=== PATIENT | female | born 1955 | race Caucasian/White ===

== ENCOUNTER 2020-06-27 09:09 | Emergency (ER) | payer MEDICARE ==
[~2020-06-27] VITALS: Ht 162.6 cm; Wt 75.0 kg
[~2020-06-27 09:09] MED LIST: ATOR40TA PO; CA C1TAB28 PO; CALC600T6 PO; CIPR500T94 PO; FLUO40CA9 PO; GABA-585 PO; HYDR-2761 PO; LEVO50TA5 PO; METH-37 PO; Oxycodone Hcl/Acetaminophen PO; PROP20TA PO; tumeric PO
--- NOTE | 2020-06-27 09:35 | PHYS DOC ---
Past Medical History Past Medical History: Cancer, High Cholesterol, Other Additional Past Medical Histor: rectal cancer, mitral valve prolapse Past Surgical History: Hysterectomy Smoking Status: Former Smoker Alcohol Use: Rarely Drug Use: None General Adult EDM: Chief Complaint: BACK PAIN - NO INJURY HPI: HPI: History obtained from patient. Patient is a 65-year-old female with past medical history notable for rectal cancer, breast cancer who presents with chief complaint of left flank pain. States the pain began yesterday gradually abhi roximately 1 PM. States pain is been constant. States pain is been progressively worsening. She notes stool incontinence but states this is baseline for her after history of radiation. She notes history of colonoscopy 1 month ago that was normal. Denies any history of kidney stone. States that she has been difficulty starting urinary stream 4 days ago but is not had any urina ry symptoms since. Denies dysuria or hematuria. Denies fevers or cough. Denies chest pain or shortness of breath. Denies syncope. Denies any midline back pain. Denies any trauma or injury or overuse injury. Did try 1 g of Tylenol last night with minimal relief. Denies any alcohol or tobacco abuse. Street hysterectomy. Denies any blood in the stool. States pain is aching in nature. No other complaints. Review of Systems: Review of Systems: Constitutional: Denies fever or chills. [] Eyes: Denies change in visual acuity. [] HENT: Denies nasal congestion or sore throat. [] Respiratory: Denies cough or shortness of breath. [] Cardiovascular: Denies chest pain or edema. [] GI: Denies abdominal pain, nausea, vomiting, bloody stools or diarrhea. [] : Denies dysuria. [] Musculoskeletal: Positive for left flank pain Integument: Denies rash. [] Neurologic: Denies headache, focal weakness or sensory changes. [] Endocrine: Denies polyuria or polydipsia. [] Lymphatic: Denies swollen glands. [] Psychiatric: Denies depression or anxiety. [] Heart Score: Risk Factors: Risk Factors: DM, Current or recent (<one month) smoker, HTN, HLP, family history of CAD, obesity. Risk Scores: Score 0 - 3: 2.5% MACE over next 6 weeks - Discharge Home Score 4 - 6: 20.3% MACE over next 6 weeks - Admit for Clinical Observation Score 7 - 10: 72.7% MACE over next 6 weeks - Early Invasive Strategies Allergies: Allergies: Allergies Coded Allergies Type Severity Reaction Last Updated Verified codeine Allergy Intermediate Tolerates Morphine 09/04/16 Yes pseudoephedrine HCl Allergy Intermediate 09/04/16 Yes Physical Exam: PE: Constitutional: Well developed, well nourished, no acute distress, non-toxic appearance. [] HENT: Normocephalic, atraumatic, bilateral external ears normal, oropharynx moist, no oral exudates, nose normal. [] Eyes: PERRLA, EOMI, conjunctiva normal, no discharge. [] Neck: Normal range of motion, no tenderness, supple, no stridor. [] Cardiovascular:Heart rate regular rhythm, no murmur [] Lungs & Thorax: Bilateral breath sounds clear to auscultation [] Abdomen: Soft, nontender, nonacute abdomen. No involuntary guarding or rigidity noted. No acute peritonitis. Skin: Warm, dry, no erythema, no rash. [] Back: No reproducible left flank tenderness. + 5/5 motor strength in dorsiflexion and plantarflexion of the great toes bilaterally. Sensation intact between the webbing of the first and second toes bilaterally. No midline cervical, thoracic, lumbar step-offs or deformities noted. No midline tenderness. Extremities: No tenderness, no cyanosis, no clubbing, ROM intact, no edema. [] Neurologic: Alert and oriented X 3, normal motor function, normal sensory function, no focal deficits noted. [] Psychologic: Affect normal, judgement normal, mood normal. [] Current Patient Data: Labs: Laboratory Tests Test 06/27/20 09:20 06/27/20 09:45 Urine Collection Type Unknown Urine Color Yellow Urine Clarity Clear Urine pH 7.0 Urine Specific Laurens 1.025 Urine Protein Negative mg/dL Urine Glucose (UA) Negative mg/dL Urine Ketones (Stick) Negative mg/dL Urine Blood Negative Urine Nitrite Negative Urine Bilirubin Negative Urine Urobilinogen Dipstick 0.2 mg/dL Urine Leukocyte Esterase Negative Urine RBC 1-2 /HPF Urine WBC Occ /HPF Urine Squamous Epithelial Cells Few /LPF Urine Bacteria 0 /HPF Urine Mucus Slight /LPF White Blood Count 12.8 x10^3/uL Red Blood Count 4.81 x10^6/uL Hemoglobin 14.2 g/dL Hematocrit 42.2 % Mean Corpuscular Volume 88 fL Mean Corpuscular Hemoglobin 30 pg Mean Corpuscular Hemoglobin Concent 34 g/dL Red Cell Distribution Width 13.3 % Platelet Count 239 x10^3/uL Neutrophils (%) (Auto) 86 % Lymphocytes (%) (Auto) 9 % Monocytes (%) (Auto) 4 % Eosinophils (%) (Auto) 0 % Basophils (%) (Auto) 1 % Neutrophils # (Auto) 11.0 x10^3/uL Lymphocytes # (Auto) 1.2 x10^3/uL Monocytes # (Auto) 0.5 x10^3/uL Eosinophils # (Auto) 0.0 x10^3/uL Basophils # (Auto) 0.1 x10^3/uL Platelet Estimate Pending Sodium Level 134 mmol/L Potassium Level 3.9 mmol/L Chloride Level 100 mmol/L Carbon Dioxide Level 25 mmol/L Anion Gap 9 Blood Urea Nitrogen 12 mg/dL Creatinine 0.6 mg/dL Estimated GFR (Cockcroft-Gault) 100.0 BUN/Creatinine Ratio 20 Glucose Level 131 mg/dL Calcium Level 8.0 mg/dL Total Bilirubin 0.6 mg/dL Aspartate Amino Transf (AST/SGOT) 31 U/L Alanine Aminotransferase (ALT/SGPT) 40 U/L Alkaline Phosphatase 58 U/L Troponin I Quantitative < 0.017 ng/mL Total Protein 7.2 g/dL Albumin 3.5 g/dL Albumin/Globulin Ratio 0.9 Lipase 147 U/L Current Medications Medications (Trade) Dose Ordered Sig/Tangela Route PRN Reason Start Time Stop Time Status Last Admin Dose Admin Ketorolac Tromethamine (Toradol 15mg Vial) 15 mg 1X ONCE IVP 06/27/20 09:45 06/27/20 09:46 DC 06/27/20 09:46 Vital Signs: Vital Signs Date Time Temp Pulse Resp B/P (MAP) Pulse Ox O2 Delivery O2 Flow Rate FiO2 06/27/20 09:22 97.0 81 16 146/78 (100) 98 Room Air 97.0 EKG: EKG: [] Radiology/Procedures: Radiology/Procedures: [facility] [address] [place], [place] [id number] IMAGING REPORT Signed PATIENT: APOLLO BOCANEGRA ACCOUNT: [id number] : 1955 LOCATION: ER AGE: 65 SEX: F EXAM STATUS: REG ER ORD. PHYSICIAN: ARTHUR MESA DO REASON: L flank pain PROCEDURE: CT ABDOMEN PELVIS WO CONTRAST EXAMINATION: CT ABDOMEN PELVIS WO CONTRAST (CT ABDOMEN/PELVIS WITHOUT IV CONTRAST) CLINICAL HISTORY: Left flank pain TECHNIQUE: Non-IV contrast imaging of the abdomen and pelvis was performed using standard technique, scanning from just above the dome of the diaphragm to the symphysis pubis. Unenhanced imaging is limited for the evaluation of some intra-abdominal and pelvic pathology. CT Dose Reduction Employed: One or more of the following individualized dose reduction techniques were utilized for this examination: 1. Automated exposure control 2. Adjustment of the mA and/or kV according to patient size 3. Use of iterative reconstruction technique. COMPARISON: 04/15/2014, 03/26/2014 FINDINGS: Lower thorax: Mild bibasilar subsegmental atelectasis and/or scarring. Liver: Unremarkable. Biliary: Mildly distended gallbladder. No extrahepatic biliary ductal dilation. Spleen: No splenomegaly. Pancreas: Unremarkable. Adrenals: No mass. Kidneys: 1.5 cm cyst in the left upper pole. No significant hydronephrosis. No calculus or finding to suggest a solid mass in the unenhanced kidneys. GI Tract: No bowel dilation. Question appendiceal stump versus partially visualized appendix. Lymph Nodes: No lymphadenopathy. Mesentery/peritoneum: No ascites. Retroperitoneum: No mass. Vasculature: Arterial atherosclerotic disease without aneurysm. Pelvis: Mild free fluid in the pelvis, likely physiologic in similar to prior study. Decompressed urinary bladder suboptimally evaluated. Bones/Soft Tissues: Sclerosis and patchy lucencies in the right inferior acetabulum/ischium with cortical disruption posteriorly, new since most recent comparison study from 2013. These findings are nonspecific and could be remote trauma, infection, or pathologic marrow replacing process. Remote healed fracture deformities in the left superior and inferior pubic rami, similar to prior study. Degenerative changes in the thoracolumbar spine and bilateral SI joints. IMPRESSION: No evidence of urolithiasis or obstructive uropathy. 1.5 cm left renal cyst, similar to prior studies. Mildly distended gallbladder without visualized cholelithiasis, correlate clinically and consider right upper quadrant ultrasound for further evaluation if indicated. Nonspecific sclerosis and patchy lucencies with cortical disruption in the right inferior acetabulum/ischium as described. Correlate clinically and recommend MRI for further evaluation as indicated. Electronically signed by: Amado Katz DO (06/27/2020 10:41 AM) [id number] DICTATED and SIGNED BY: AMADO KATZ DO DATE: 06/27/20 104 [] Course & Med Decision Making: Course & Med Decision Making Pertinent Labs and Imaging studies reviewed. (See chart for details) [] Patient is an overall well-appearing 65-year-old female presents with chief complaint of left flank pain. Initial vital signs unremarkable. Exam overall reassuring. No red flag signs or symptoms regarding back pain. Urinalysis shows no evidence of infection. Basic labs have been obtained and are unremarkable. CT imagin reveals no acute findings. Repeat examination patient states Toradol resolved her symptoms. Her repeat examination remains benign. Her vital signs been stable. I do feel overall she is appropriate for discharge home. She was given strict ~24-hour return precautions. She was encouraged to use anti-inflammatory medication at home. Return precautions discussed and understood. Stable for discharge. Dragon Disclaimer: [employer] Disclaimer: This electronic medical record was generated, in whole or in part, using a voice recognition dictation system. Departure Departure Impression: Primary Impression: Left flank pain Disposition: 01 DC HOME SELF CARE/HOMELESS Condition: STABLE Referrals: UNKNOWN PCP NAME (PCP) Patient Instructions: Flank Pain Additional Instructions: Please follow-up with your primary care physician in the next 2 to 3 days. Please return emergency department the next 12 hours or symptoms continue or worsen. Discharge Abdominal Pain Re-Check Precautions: I'm unsure of the specific cause of your abdominal pain. However, at this point I feel that you are low risk for a life threatening emergency and that discharge from the Emergency Department is safe. There is a very small possibility that you are just too early in your clinical course for our physical exam/labs/imaging to ascertain whether or not you have an emergent condition that could potentially cause permanent disability or be life threatening. As such, it is very important that you follow up with your primary doctor or return to the Emergency Department in 12-24 hours for re-assessment and further evaluation if clinically indicated. If you develop new or worsening symptoms then you should return to the Emergency Department immediately. Home Care Instructions: Abdominal Pain Many things may cause abdominal pain. Your ER visit might not show the exact reason you are having pain. In some cases, additional time is needed to determine if the cause is serious. Therefore you may be told to go home and watch for any changes or worsening in your condition. Before that, we may not know if you need more testing, or if hospitalization or surgery is necessary. If its not something serious, the pain may go away without treatment or get better with simple things like avoiding certain foods or medications. In the ER, your doctor asks you questions, examines you and in some cases, may order tests. These help doctors decide if the pain is from something serious. Tests are not always done and may not provide a definite answer. There can still be a problem, even with normal test results. Abdominal pain may be caused by something serious (like appendicitis), which is not obvious right away. Because of this, another checkup is needed to make sure you are OK. It is VERY IMPORTANT to follow up for a repeat exam, especially if you have any symptoms that are not going away or are getting worse. We recommend that you RETURN TO THE EMERGENCY ROOM IN 8-12 HOURS to be rechecked. If you cannot, you may follow up with your primary care doctor or clinic. It is important that you follow all of the instructions below. RETURN TO THE EMERGENCY ROOM IMMEDIATELY IF: The pain does not go away or gets worse. You have a fever. You keep throwing up and cannot keep anything down. You pass bloody or black stools. You develop new symptoms. HOME CARE INSTRUCTIONS Come back to the ER (or see your doctor) in 8-12 hours. DO NOT take laxatives unless directed by your doctor. Avoid the use of alcohol Take pain medicine only as directed by your doctor. Only take [id number] or prescription medicine as directed by your doctor. Try a clear liquid diet (broth, tea, jello, water) for the next 12-24 hours. Slowly move to a bland diet as tolerated. Do not eat greasy, fatty or spicy foods. Once you start getting better, go back to a normal, healthy diet, slowly over a few days. DISCHARGE PT INSTRUCTIONS: YOU HAVE BEEN EVALUATED FOR ABDOMINAL PAIN. HOWEVER, WE ARE UNABLE TO PROVIDE A DEFINITE CAUSE OF YOUR SYMPTOMS. EVEN THOUGH YOUR TESTS MAY HAVE BEEN NORMAL, YOU STILL COULD HAVE A SERIOUS CAUSE FOR YOUR ABDOMINAL PAIN, INCLUDING APPENDICITIS. THE BEST TEST TO DETERMINE IF YOU HAVE A SERIOUS CAUSE IS RE-EXAMINATION OVER TIME. WE USED TO ADMIT PATIENTS TO THE HOSPITAL FOR THIS, BUT CAN NOW ALLOW YOU TO GO HOME, & RETURN TO OUR ER THE NEXT DAY FOR RE- EXAMINATION. THUS, WE WOULD LIKE YOU TO RETURN TO OUR ER TOMORROW FOR YOUR RE- EVALUATION. (IF YOUR SYMPTOMS HAVE GONE AWAY, THEN YOU DO NOT NEED TO RETURN.) IF YOUR SYMPTOMS GET WORSE BETWEEN NOW & THEN, YOU SHOULD RETURN IMMEDIATELY & NOT WAIT UNTIL TOMORROW. SYMPTOMS TO LOOK FOR WORSENING PAIN, HIGH FEVER, PERSISTENT VOMITING , AND/OR OVERALL WORSENING OF YOUR CONDITION. [facility] [address] [place] [address] [facility] [address] [place] [address] [facility] [address] [facility] [place] [address] [facility] [address] [place] [address] [facility] [address] [place] [address] [facility] [address] [place] [address] [facility] [address] [place] [address] [facility] [address] [place] [address] [facility] [address] [place] [address] [facility] [address] [place] [address] Scripts Ibuprofen (IBUPROFEN) 600 Mg Tablet 600 MG PO PRN Q6HRS PRN for PAIN, #20 TAB take with food or milk Prov: ARTHUR MESA DO 06/27/20 ARTHUR MESA DO Jun 27, 2020 09:35
[2020-06-27] MEDS ORDERED: KETOROLAC 15 MG/ML VIAL. IVP ONE (09:45)
[2020-06-27 09:54] LABS: BILIRUBIN,URINE NEGATIVE (NEG); CLARITY,URINE CLEAR; COLOR,URINE YELLOW; NITRITE,URINE NEGATIVE (NEG); PROTEIN,URINE NEGATIVE (NEG-TRACE); UROBILINOGEN,URINE 0.2 mg/dL (0.2 mg/dL)
[2020-06-27 10:04] LABS: CREATININE 0.6 mg/dL (0.6-1.0); POTASSIUM 3.9 mmol/L (3.5-5.1)
[2020-06-27 10:05] LABS: BASO # 0.1 x10^3/uL (0.0-0.2); BASO % 1 % (0-3); EOS % 0 % (0-3); HEMATOCRIT 42.2 % (36.0-47.0); HEMOGLOBIN 14.2 g/dL (12.0-15.5); LYMPH # 1.2 x10^3/uL (1.0-4.8); LYMPH % 9 % (24-48); MEAN CORPUSCULAR HEMOGLOBIN 30 pg (25-35); MEAN CORPUSCULAR HGB CONC 34 g/dL (31-37); MEAN CORPUSCULAR VOLUME 88 fL (79-100); MONO # 0.5 x10^3/uL (0.0-1.1); MONO % 4 % (0-9); NEUT % 86 % (31-73); PLATELET COUNT 239 x10^3/uL (140-400); RED BLOOD COUNT 4.81 x10^6/uL (3.50-5.40); RED CELL DISTRIBUTION WIDTH 13.3 % (11.5-14.5); WHITE BLOOD COUNT 12.8 x10^3/uL (4.0-11.0)
[2020-06-27 10:09] LABS: ALBUMIN 3.5 g/dL (3.4-5.0); ALBUMIN/GLOBULIN RATIO 0.9 (1.0-1.7); TOTAL BILIRUBIN 0.6 mg/dL (0.2-1.0); TOTAL PROTEIN 7.2 g/dL (6.4-8.2)
[2020-06-27 10:19] LABS: BACTERIA,URINE 0 /HPF (0-FEW); WBC,URINE OCC /HPF (0-4)
--- NOTE | 2020-06-27 10:28 | RAD ---
EXAM: CHEST AP ONLY 06/27/2020 9:58 AM CLINICAL INDICATION: Right upper back pain COMPARISON: None TECHNIQUE: AP upright view the chest FINDINGS: The heart and mediastinum are normal. Lungs are well-expanded and clear. No consolidation, pleural effusion, or pneumothorax. Pulmonary vascularity is normal. There are old right posterior lateral rib fractures. Mild right acromioclavicular degenerative joint disease. IMPRESSION: No acute cardiopulmonary abnormality. Electronically signed by: Stephanie Muller MD (06/27/2020 10:25 AM) [id number]
--- NOTE | 2020-06-27 10:44 | RAD ---
EXAMINATION: CT ABDOMEN PELVIS WO CONTRAST (CT ABDOMEN/PELVIS WITHOUT IV CONTRAST) CLINICAL HISTORY: Left flank pain TECHNIQUE: Non-IV contrast imaging of the abdomen and pelvis was performed using standard technique, scanning from just above the dome of the diaphragm to the symphysis pubis. Unenhanced imaging is limited for the evaluation of some intra-abdominal and pelvic pathology. CT Dose Reduction Employed: One or more of the following individualized dose reduction techniques were utilized for this examination: 1. Automated exposure control 2. Adjustment of the mA and/or kV according to patient size 3. Use of iterative reconstruction technique. COMPARISON: 04/15/2014, 03/26/2014 FINDINGS: Lower thorax: Mild bibasilar subsegmental atelectasis and/or scarring. Liver: Unremarkable. Biliary: Mildly distended gallbladder. No extrahepatic biliary ductal dilation. Spleen: No splenomegaly. Pancreas: Unremarkable. Adrenals: No mass. Kidneys: 1.5 cm cyst in the left upper pole. No significant hydronephrosis. No calculus or finding to suggest a solid mass in the unenhanced kidneys. GI Tract: No bowel dilation. Question appendiceal stump versus partially visualized appendix. Lymph Nodes: No lymphadenopathy. Mesentery/peritoneum: No ascites. Retroperitoneum: No mass. Vasculature: Arterial atherosclerotic disease without aneurysm. Pelvis: Mild free fluid in the pelvis, likely physiologic in similar to prior study. Decompressed urinary bladder suboptimally evaluated. Bones/Soft Tissues: Sclerosis and patchy lucencies in the right inferior acetabulum/ischium with cortical disruption posteriorly, new since most recent comparison study from 2013. These findings are nonspecific and could be remote trauma, infection, or pathologic marrow replacing process. Remote healed fracture deformities in the left superior and inferior pubic rami, similar to prior study. Degenerative changes in the thoracolumbar spine and bilateral SI joints. IMPRESSION: No evidence of urolithiasis or obstructive uropathy. 1.5 cm left renal cyst, similar to prior studies. Mildly distended gallbladder without visualized cholelithiasis, correlate clinically and consider right upper quadrant ultrasound for further evaluation if indicated. Nonspecific sclerosis and patchy lucencies with cortical disruption in the right inferior acetabulum/ischium as described. Correlate clinically and recommend MRI for further evaluation as indicated. Electronically signed by: Amado Short DO (06/27/2020 10:41 AM) [id number]
[2020-06-27] MEDS ORDERED: IBUP-1007 PO (10:56)
[2020-06-27 11:11] VITALS: BP 113/63
[2020-06-27 12:44] LABS: % ATYL 2 % (0-0); % BANDS 4 % (0-9); % LYMPHS 8 % (24-48); % MONOS 7 % (0-10); % SEGS 79 % (35-66)
[2020-06-27 12:45] LABS: PLT ESTIMATE ADEQUATE (ADEQUATE)
== END 2020-06-27 11:32 | disposition home or self-care (01) ==
LOC: ER 09:09
DX: R10.32 Left lower quadrant pain (principal); M54.6 Pain in thoracic spine; R39.11 Hesitancy of micturition; Z88.5 Allergy status to narcotic agent; Z88.8 Allergy status to other drugs, medicaments and biological substances
CPT/HCPCS: 36415; 71045; 74176; 80053; 81001; 83690; 84484; 85007; 85025; 96374; 99285; J1885; 43753

== ENCOUNTER 2020-06-28 06:44 | Observation (INO) | payer MEDICARE ==
[~2020-06-28] VITALS: Ht 162.6 cm; Wt 73.6 kg
[~2020-06-28 06:44] MED LIST changes: +IBUP-1007 PO
[2020-06-28] MEDS ORDERED: KETOROLAC 30 MG/ML VIAL. IVP ONE (08:15)
--- NOTE | 2020-06-28 08:18 | RAD ---
EXAMINATION: ABDOMEN LTD 06/28/2020 7:42 AM INDICATION: Right upper quadrant pain TECHNIQUE: Brown scale and color Doppler ultrasound images of the right upper quadrant were obtained. COMPARISON: None. FINDINGS: Exam is limited due to bowel gas. Liver: The liver is normal in size measuring 15.5 cm in length and diffusely increased in echogenicity. No focal liver lesion. Gallbladder: The gallbladder is distended. There are echogenic shadowing calculi layering in the gallbladder lumen. The gallbladder wall is mildly thickened measuring 4 mm. Sonographic Gallardo sign is positive. Bile ducts: The common bile duct is normal measuring 6 mm. No intrahepatic biliary duct dilatation. Right kidney: The right kidney measures 11.0 x 5.8 x 4.4 cm. Normal cortical thickness and echogenicity. No hydronephrosis. Other: Abdominal aorta, inferior vena cava, and pancreas are not well visualized. No ascites. IMPRESSION: 1. Cholelithiasis with mild gallbladder wall thickening and positive sonographic Gallardo sign, suspicious for acute cholecystitis. Correlate clinically. 2. Hepatic steatosis. Electronically signed by: Stephanie Muller MD (06/28/2020 8:15 AM) [email or web address]
[2020-06-28 08:37] LABS: BASO # 0.1 x10^3/uL (0.0-0.2); BASO % 1 % (0-3); EOS % 1 % (0-3); HEMATOCRIT 44.1 % (36.0-47.0); HEMOGLOBIN 14.5 g/dL (12.0-15.5); LYMPH # 0.9 x10^3/uL (1.0-4.8); LYMPH % 9 % (24-48); MEAN CORPUSCULAR HEMOGLOBIN 29 pg (25-35); MEAN CORPUSCULAR HGB CONC 33 g/dL (31-37); MEAN CORPUSCULAR VOLUME 89 fL (79-100); MONO # 0.6 x10^3/uL (0.0-1.1); MONO % 6 % (0-9); NEUT # 8.4 x10^3/uL (1.8-7.7); NEUT % 83 % (31-73); PLATELET COUNT 249 x10^3/uL (140-400); RED BLOOD COUNT 4.94 x10^6/uL (3.50-5.40); RED CELL DISTRIBUTION WIDTH 13.5 % (11.5-14.5); WHITE BLOOD COUNT 10.1 x10^3/uL (4.0-11.0)
[2020-06-28 08:45] LABS: CALCIUM 8.9 mg/dL (8.5-10.1); CREATININE 0.7 mg/dL (0.6-1.0); GFR 83.7; POTASSIUM 3.9 mmol/L (3.5-5.1)
[2020-06-28 08:51] LABS: ALBUMIN 3.5 g/dL (3.4-5.0); ALBUMIN/GLOBULIN RATIO 0.8 (1.0-1.7); TOTAL BILIRUBIN 1.1 mg/dL (0.2-1.0); TOTAL PROTEIN 7.7 g/dL (6.4-8.2)
--- NOTE | 2020-06-28 10:15 | ED.ADGEN ---
Past Medical History Past Medical History: Cancer, High Cholesterol, Other Additional Past Medical Histor: rectal cancer, mitral valve prolapse, BREAST CANCER Past Surgical History: Hysterectomy, Other Additional Past Surgical Histo: left lumpectomy Smoking Status: Former Smoker Alcohol Use: None Drug Use: None General Adult EDM: Chief Complaint: MULTIPLE COMPLAINTS HPI: HPI: Patient is a 65-year-old female who presents to the emergency room complaining of left flank and right upper quadrant abdominal pain. Patient was seen here yesterday for left flank pain that radiated into her back. She had a CT scan done at that time that appeared overall normal. She was told that if her symptoms did not greatly improve that she should return to the emergency room. She continues to have significant pain so she came back to the ER. This morning she developed the right upper quadrant pain which is new. She states that is her dominant pain at this time. She has never had anything like this before. She does still have her gallbladder. She did have gallstones on her CT scan yesterday but she had normal liver enzymes without any pain. She denies any nausea or vomiting. Review of Systems: Review of Systems: General: Denies fever, chills, sweats, fatigue Eyes: Denies drainage, blurred vision, eye redness HENT: Denies rhinorrhea, sore throat, earache Respiratory: Denies cough, shortness of breath, wheezing Cardiac: Denies edema, palpitations, chest pain GI: Denies, Nausea, vomiting. Reports abdominal pain MSK: Denies back pain, neck pain Skin: Denies rash, jaundice Neuro: Denies headache, dizziness Psychiatric: Denies SI/HI Current Medications: Current Medications Medications (Trade) Dose Ordered Sig/Tangela Start Time Stop Time Status Last Admin Dose Admin Ketorolac Tromethamine (Toradol 30mg Vial) 30 mg 1X ONCE 06/28/20 08:15 06/28/20 08:18 DC 06/28/20 08:25 30 MG Allergies: Allergies: Allergies Coded Allergies Type Severity Reaction Last Updated Verified codeine Allergy Intermediate Tolerates Morphine 09/04/16 Yes pseudoephedrine HCl Allergy Intermediate 09/04/16 Yes Physical Exam: PE: General: Awake, alert, NAD. Well Nourished, well hydrated. Cooperative HEENT: Atraumatic, EOMI, PERRL, airway patent, moist oral mucosa Neck: Supple, trachea midline Respiratory: CTA bilaterally, normal effort, no wheezing/crackles CV: RRR, no murmur, cap refill <2 GI: Soft, nondistended, right upper quadrant abdominal tenderness MSK: No obvious deformities Skin: Warm, dry, intact Neuro: A&O x3, speech NL, sensory and motor grossly intact, no focal deficits Psych: Normal affect, normal mood, not suicidal or homicidal Current Patient Data: Labs: Laboratory Tests Test 06/28/20 08:06 White Blood Count 10.1 x10^3/uL (4.0-11.0) Red Blood Count 4.94 x10^6/uL (3.50-5.40) Hemoglobin 14.5 g/dL (12.0-15.5) Hematocrit 44.1 % (36.0-47.0) Mean Corpuscular Volume 89 fL (79-100) Mean Corpuscular Hemoglobin 29 pg (25-35) Mean Corpuscular Hemoglobin Concent 33 g/dL (31-37) Red Cell Distribution Width 13.5 % (11.5-14.5) Platelet Count 249 x10^3/uL (140-400) Neutrophils (%) (Auto) 83 % (31-73) H Lymphocytes (%) (Auto) 9 % (24-48) L Monocytes (%) (Auto) 6 % (0-9) Eosinophils (%) (Auto) 1 % (0-3) Basophils (%) (Auto) 1 % (0-3) Neutrophils # (Auto) 8.4 x10^3/uL (1.8-7.7) H Lymphocytes # (Auto) 0.9 x10^3/uL (1.0-4.8) L Monocytes # (Auto) 0.6 x10^3/uL (0.0-1.1) Eosinophils # (Auto) 0.0 x10^3/uL (0.0-0.7) Basophils # (Auto) 0.1 x10^3/uL (0.0-0.2) Sodium Level 135 mmol/L (136-145) L Potassium Level 3.9 mmol/L (3.5-5.1) Chloride Level 100 mmol/L (98-107) Carbon Dioxide Level 26 mmol/L (21-32) Anion Gap 9 (6-14) Blood Urea Nitrogen 14 mg/dL (7-20) Creatinine 0.7 mg/dL (0.6-1.0) Estimated GFR (Cockcroft-Gault) 83.7 BUN/Creatinine Ratio 20 (6-20) Glucose Level 113 mg/dL (70-99) H Calcium Level 8.9 mg/dL (8.5-10.1) Total Bilirubin 1.1 mg/dL (0.2-1.0) H Aspartate Amino Transferase (AST) 52 U/L (15-37) H Alanine Aminotransferase (ALT) 67 U/L (14-59) H Alkaline Phosphatase 71 U/L (46-116) Total Protein 7.7 g/dL (6.4-8.2) Albumin 3.5 g/dL (3.4-5.0) Albumin/Globulin Ratio 0.8 (1.0-1.7) L Lipase 64 U/L (73-393) L Laboratory Tests 06/28/20 08:06 Laboratory Tests 06/28/20 08:06 Vital Signs: Vital Signs Date Time Temp Pulse Resp B/P (MAP) Pulse Ox O2 Delivery O2 Flow Rate FiO2 06/28/20 09:39 80 16 129/65 (86) 95 Room Air 06/28/20 06:51 98.3 98.3 EKG: EKG: [] Heart Score: Risk Factors: Risk Factors: DM, Current or recent (<one month) smoker, HTN, HLP, family history of CAD, obesity. Risk Scores: Score 0 - 3: 2.5% MACE over next 6 weeks - Discharge Home Score 4 - 6: 20.3% MACE over next 6 weeks - Admit for Clinical Observation Score 7 - 10: 72.7% MACE over next 6 weeks - Early Invasive Strategies Radiology/Procedures: Radiology/Procedures: [] Course & Med Decision Making: Course & Med Decision Making Pertinent Labs and Imaging studies reviewed. (See chart for details) Patient is 65-year-old female who presents to the emergency room complaining of right upper quadrant abdominal pain with left flank pain. CT did show thickened gallbladder wall yesterday. We will repeat abdominal labs and do an ultrasound of her gallbladder. LFTs are increasing and ultrasound is concerning for acute cholecystitis. Patient will be admitted and Dr. Lott the surgeon was consulted. Caroleeon Disclaimer: Dragon Disclaimer: This electronic medical record was generated, in whole or in part, using a voice recognition dictation system. Departure Departure Impression: Primary Impression: Acute cholecystitis Disposition: 09 ADMITTED INPT THIS HOSP Condition: IMPROVED Referrals: UNKNOWN PCP NAME (PCP) CÉSAR VEE MD Jun 28, 2020 10:15
[2020-06-28] MEDS ORDERED: HYDROmorphone 2 MG/ML VIAL IV PRN (11:00)
[2020-06-28] MEDS ORDERED: PROCHLORPERAZINE 10 MG/2 ML VIAL. IVP PRN (11:00)
[2020-06-28] MEDS ORDERED: ONDANSETRON PF 4 MG/2 ML VIAL. IVP PRN (11:00)
[2020-06-28] MEDS ORDERED: ZOLPIDEM 5 MG TABLET. PO PRN (11:00)
[2020-06-28] MEDS ORDERED: MORPHINE SULFATE 2 MG/ML VIAL. IV PRN ×2 (11:00)
[2020-06-28] MEDS ORDERED: KETOROLAC 15 MG/ML VIAL. IV PRN (11:00)
--- NOTE | 2020-06-28 11:20 | PDOC1 ---
History and Physical Date of Admission Date of Admission DATE: 06/28/20 TIME: 10:59 Identification/Chief Complaint Chief Complaint Abdominal pain, back pain Source Source: Patient History of Present Illness History of Present Illness Patient is a 65-year-old female with past medical history rectal cancer, who presents to the ER with complaint of epigastric pain that started today. She was seen in the ER yesterday for left lower back pain that she thought was related to urinary tract infection. Urinalysis from yesterday was negative for any evidence of infection, and CT abdomen pelvis showed 1.5 cm left renal cyst, similar to prior studies, mildly distended gallbladder without visualized cholelithiasis. Patient was discharged from the ER and told to return if her symptoms worsened. This morning she began develop aching epigastric pain, 8/10, with associated decreased appetite. Patient notes an associated decreased appetite, and says she has not eaten today. Ultrasound right upper quadrant shows mild gallbladder wall thickening with cholelithiasis. General surgery was contacted by ER physician for acute cholecystitis, and I was asked to admit for further medical management. WBC 10.1, lipase 64 Past Medical History Past Medical History Rectal cancer, left breast cancer, mitral valve prolapse, HLD Cardiovascular: Other Pulmonary: No pertinent hx GI: Other Heme/Onc: Other Hepatobiliary: Other Psych: Depression Rheumatologic: No pertinent hx Infectious disease: No pertinent hx Endocrine: Osteoporosis, Other Past Surgical History Past Surgical History: Breast Biopsy, Hysterectomy Family History Family History: No Significant Social History Smoke: Quit ALCOHOL: none Drugs: None Current Problem List Problem List Problems Medical Problems: (1) Acute cholecystitis Status: Acute Current Medications Current Medications Current Medications Ketorolac Tromethamine (Toradol 30mg Vial) 30 mg 1X ONCE IVP Last administered on 06/28/20at 08:25; Start 06/28/20 at 08:15; Stop 06/28/20 at 08:18; Status DC Active Scripts Active Ibuprofen 600 Mg Tablet 600 Mg PO PRN Q6HRS PRN take with food or milk Hydrocodone-Apap 5-325 (Hydrocodone Bit/Acetaminophen) 1 Each Tablet 2 Tab PO PRN Q4HRS PRN Reported Propranolol Hcl 20 Mg Tablet 1 Tab PO PRN BID PRN [tumeric] 1,000 Mg PO DAILY Levothyroxine Sodium 50 Mcg Tablet 1 Tab PO DAILY Calcium (Calcium Carbonate) 600 Mg Tablet 1,200 Mg PO DAILY Vitamin D3 1,000 Unit Tablet (Ca Cmb No.1/Vit D3/B-6/Fa/B12) 1 Each Tablet 1 Each PO DAILY Lipitor (Atorvastatin Calcium) 40 Mg Tablet 40 Mg PO HS Allergies Allergies: Coded Allergies: codeine (Verified Allergy, Intermediate, Tolerates Morphine, 09/04/16) pseudoephedrine HCl (Verified Allergy, Intermediate, 09/04/16) ROS Review of System GENERAL: No history of weight change, weakness or fevers. SKIN: No bruising, hair changes or rashes. EYES: No blurred, double or loss of vision. NOSE AND THROAT: No history of nosebleeds, hoarseness or sore throat. HEART: Denies chest pain, denies palpitations. LUNGS: Denies cough, hemoptysis, wheezing or shortness of breath. GASTROINTESTINAL: Abdominal pain, decreased appetite. Denies vomiting, denies diarrhea. GENITOURINARY: Denies dysuria, frequency, urgency, hematuria. NEUROLOGIC: Denies history of numbness, tingling, tremor or weakness. PSYCHIATRIC: Denies anxiety, denies depression. ENDOCRINE: No history of heat or cold intolerance, polyuria or polydipsia. EXTREMITIES: Denies muscle weakness, joint pain, pain on walking or stiffness. Physical Exam Physical Exam General: Alert, Oriented X3, Cooperative, No acute distress HEENT: PERRLA, EOMI Lungs: Clear to auscultation, Normal air movement Heart: RRR, no murmurs Cardiovascular: S1, S2 Abdomen: Right upper quadrant tenderness normal bowel sounds, Soft. Extremities: No clubbing, No cyanosis Skin: No rashes, No significant lesion Neuro: Normal speech, Normal tone, Sensation intact Psych/Mental Status: Mental status NL, Mood NL Vitals Vitals Vital Signs Date Time Temp Pulse Resp B/P (MAP) Pulse Ox O2 Delivery O2 Flow Rate FiO2 06/28/20 09:39 80 16 129/65 (86) 95 Room Air 06/28/20 06:51 98.3 98.3 Labs Labs Laboratory Tests Test 06/28/20 08:06 White Blood Count 10.1 x10^3/uL (4.0-11.0) Red Blood Count 4.94 x10^6/uL (3.50-5.40) Hemoglobin 14.5 g/dL (12.0-15.5) Hematocrit 44.1 % (36.0-47.0) Mean Corpuscular Volume 89 fL (79-100) Mean Corpuscular Hemoglobin 29 pg (25-35) Mean Corpuscular Hemoglobin Concent 33 g/dL (31-37) Red Cell Distribution Width 13.5 % (11.5-14.5) Platelet Count 249 x10^3/uL (140-400) Neutrophils (%) (Auto) 83 % (31-73) Lymphocytes (%) (Auto) 9 % (24-48) Monocytes (%) (Auto) 6 % (0-9) Eosinophils (%) (Auto) 1 % (0-3) Basophils (%) (Auto) 1 % (0-3) Neutrophils # (Auto) 8.4 x10^3/uL (1.8-7.7) Lymphocytes # (Auto) 0.9 x10^3/uL (1.0-4.8) Monocytes # (Auto) 0.6 x10^3/uL (0.0-1.1) Eosinophils # (Auto) 0.0 x10^3/uL (0.0-0.7) Basophils # (Auto) 0.1 x10^3/uL (0.0-0.2) Sodium Level 135 mmol/L (136-145) Potassium Level 3.9 mmol/L (3.5-5.1) Chloride Level 100 mmol/L (98-107) Carbon Dioxide Level 26 mmol/L (21-32) Anion Gap 9 (6-14) Blood Urea Nitrogen 14 mg/dL (7-20) Creatinine 0.7 mg/dL (0.6-1.0) Estimated GFR (Cockcroft-Gault) 83.7 BUN/Creatinine Ratio 20 (6-20) Glucose Level 113 mg/dL (70-99) Calcium Level 8.9 mg/dL (8.5-10.1) Total Bilirubin 1.1 mg/dL (0.2-1.0) Aspartate Amino Transf (AST/SGOT) 52 U/L (15-37) Alanine Aminotransferase (ALT/SGPT) 67 U/L (14-59) Alkaline Phosphatase 71 U/L (46-116) Total Protein 7.7 g/dL (6.4-8.2) Albumin 3.5 g/dL (3.4-5.0) Albumin/Globulin Ratio 0.8 (1.0-1.7) Lipase 64 U/L (73-393) Laboratory Tests Test 06/28/20 08:06 White Blood Count 10.1 x10^3/uL (4.0-11.0) Red Blood Count 4.94 x10^6/uL (3.50-5.40) Hemoglobin 14.5 g/dL (12.0-15.5) Hematocrit 44.1 % (36.0-47.0) Mean Corpuscular Volume 89 fL (79-100) Mean Corpuscular Hemoglobin 29 pg (25-35) Mean Corpuscular Hemoglobin Concent 33 g/dL (31-37) Red Cell Distribution Width 13.5 % (11.5-14.5) Platelet Count 249 x10^3/uL (140-400) Neutrophils (%) (Auto) 83 % (31-73) Lymphocytes (%) (Auto) 9 % (24-48) Monocytes (%) (Auto) 6 % (0-9) Eosinophils (%) (Auto) 1 % (0-3) Basophils (%) (Auto) 1 % (0-3) Neutrophils # (Auto) 8.4 x10^3/uL (1.8-7.7) Lymphocytes # (Auto) 0.9 x10^3/uL (1.0-4.8) Monocytes # (Auto) 0.6 x10^3/uL (0.0-1.1) Eosinophils # (Auto) 0.0 x10^3/uL (0.0-0.7) Basophils # (Auto) 0.1 x10^3/uL (0.0-0.2) Sodium Level 135 mmol/L (136-145) Potassium Level 3.9 mmol/L (3.5-5.1) Chloride Level 100 mmol/L (98-107) Carbon Dioxide Level 26 mmol/L (21-32) Anion Gap 9 (6-14) Blood Urea Nitrogen 14 mg/dL (7-20) Creatinine 0.7 mg/dL (0.6-1.0) Estimated GFR (Cockcroft-Gault) 83.7 BUN/Creatinine Ratio 20 (6-20) Glucose Level 113 mg/dL (70-99) Calcium Level 8.9 mg/dL (8.5-10.1) Total Bilirubin 1.1 mg/dL (0.2-1.0) Aspartate Amino Transf (AST/SGOT) 52 U/L (15-37) Alanine Aminotransferase (ALT/SGPT) 67 U/L (14-59) Alkaline Phosphatase 71 U/L (46-116) Total Protein 7.7 g/dL (6.4-8.2) Albumin 3.5 g/dL (3.4-5.0) Albumin/Globulin Ratio 0.8 (1.0-1.7) Lipase 64 U/L (73-393) Images Images EXAMINATION: ABDOMEN LTD 06/28/2020 7:42 AM INDICATION: Right upper quadrant pain TECHNIQUE: Brown scale and color Doppler ultrasound images of the right upper quadrant were obtained. COMPARISON: None. FINDINGS: Exam is limited due to bowel gas. Liver: The liver is normal in size measuring 15.5 cm in length and diffusely increased in echogenicity. No focal liver lesion. Gallbladder: The gallbladder is distended. There are echogenic shadowing calculi layering in the gallbladder lumen. The gallbladder wall is mildly thickened measuring 4 mm. Sonographic Gallardo sign is positive. Bile ducts: The common bile duct is normal measuring 6 mm. No intrahepatic biliary duct dilatation. Right kidney: The right kidney measures 11.0 x 5.8 x 4.4 cm. Normal cortical thickness and echogenicity. No hydronephrosis. Other: Abdominal aorta, inferior vena cava, and pancreas are not well visualized. No ascites. IMPRESSION: 1. Cholelithiasis with mild gallbladder wall thickening and positive sonographic Gallardo sign, suspicious for acute cholecystitis. Correlate clinically. 2. Hepatic steatosis. VTE Prophylaxis Ordered VTE Prophylaxis Devices: Yes VTE Pharmacological Prophylaxi: No Assessment/Plan Assessment/Plan Acute cholecystitis Hyponatremia Plan: Consult general surgery for cholecystectomy. I imagine patient will have laparoscopic cholecystectomy today. If no complications she may be discharged home tomorrow. IV pain medication IV normal saline FEN - n.p.o., after surgery advance diet as tolerated PPX - SCD, will change to heparin tomorrow post surgery FULL CODE Dispo - inpatient for above Justifications for Admission Other Justification Acute cholecystitis TUCKER ANDINO MD Jun 28, 2020 11:20
[2020-06-28] MEDS ORDERED: IV NORMAL SALINE 1000ML BAG 1,000 ML IV ONE (11:30)
[2020-06-28] MEDS ORDERED: cefTRIAXone IV Push 1 GM VIAL. IVP ONE (12:45)
[2020-06-28] MEDS: HYDROmorphone 2 MG/ML VIAL IV PRN ×3 (14:25→19:53)
[2020-06-28 14:31] VITALS: BP 140/67
--- NOTE | 2020-06-28 16:55 | NUR ---
pt transported via wheelchair to room 428. Report called to WARD Bush. All belongings with patient at the time of transfer.
--- NOTE | 2020-06-28 17:07 | NUR ---
Received patient transfer from ED hold, report received from WARD Cruz, admission assessments already completed by previous nurse, will continue to monitor patient.
[2020-06-28 17:12] VITALS: BP 127/61
[2020-06-28 19:00] VITALS: BP 129/63
--- NOTE | 2020-06-28 19:41 | PDOC2 ---
CONSULT Date of Consult Date of Consult DATE: 06/28/20 TIME: 19:38 Reason for Consult Reason for Consult: Abdominal pain Identification/Chief Complaint Chief Complaint Abdominal pain Source Source: Chart review, Patient History of Present Illness Reason for Visit: 65 yo female with several months of intermittent RUQ abdominal pain. Last 2 days have been more severe. U/S showing gallstones and thickened gallbladder wall Past Medical History Cardiovascular: Other Pulmonary: No pertinent hx GI: Other Heme/Onc: Other Hepatobiliary: Other Psych: Depression Rheumatologic: No pertinent hx Infectious disease: No pertinent hx Endocrine: Osteoporosis, Other Past Surgical History Past Surgical History: Breast Biopsy, Hysterectomy Family History Family History: No Significant Social History Quit ALCOHOL: none Drugs: None Lives: with Family Domestic Violence: Neg Current Problem List Problem List Problems Medical Problems: (1) Acute cholecystitis Status: Acute Current Medications Current Medications Current Medications Ketorolac Tromethamine (Toradol 30mg Vial) 30 mg 1X ONCE IVP Last administered on 06/28/20at 08:25; Start 06/28/20 at 08:15; Stop 06/28/20 at 08:18; Status DC Ondansetron HCl (Zofran) 4 mg PRN Q6HRS PRN IVP NAUSEA/VOMITING; Start 06/28/20 at 11:00 Prochlorperazine Edisylate (Compazine) 10 mg PRN Q6HRS PRN IVP NAUSEA/VOMITING; Start 06/28/20 at 11:00 Zolpidem Tartrate (Ambien) 5 mg PRN QHS PRN PO INSOMNIA, MAY REPEAT IN 1HR; Start 06/28/20 at 11:00 Morphine Sulfate (Morphine Sulfate) 1 mg PRN Q1HR PRN IV PAIN; Start 06/28/20 at 11:00 Morphine Sulfate (Morphine Sulfate) 2 mg PRN Q1HR PRN IV PAIN; Start 06/28/20 at 11:00 Hydromorphone HCl (Dilaudid) 0.2 mg PRN Q1HR PRN IV PAIN; Start 06/28/20 at 11:00 Hydromorphone HCl (Dilaudid) 0.4 mg PRN Q1HR PRN IV PAIN Last administered on 06/28/20at 16:22; Start 06/28/20 at 11:00 Ketorolac Tromethamine (Toradol 15mg Vial) 15 mg PRN Q6HRS PRN IV MOD./SEVERE PAIN (1st Choice) Last administered on 06/28/20at 13:03; Start 06/28/20 at 11:00; Stop 07/03/20 at 10:59 Sodium Chloride 1,000 ml @ 100 mls/hr 1X ONCE IV Last administered on 06/28/20at 12:31; Start 06/28/20 at 11:30; Stop 06/28/20 at 21:29 Ceftriaxone Sodium (Rocephin) 1 gm 1X ONCE IVP Last administered on 06/28/20at 13:49; Start 06/28/20 at 12:45; Stop 06/28/20 at 12:46; Status DC Active Scripts Active Reported No Known Medications Prior To Admisstion (Info) Each 1 Each NONE Allergies Allergies: Coded Allergies: codeine (Verified Allergy, Intermediate, Tolerates Morphine, 09/04/16) pseudoephedrine HCl (Verified Allergy, Intermediate, 09/04/16) ROS Gastrointestinal: Yes Abdominal Pain Physical Exam General: Alert, Oriented X3, Cooperative, mild distress HEENT: Atraumatic, EOMI Lungs: Clear to auscultation, Normal air movement Heart: Regular rate, No murmurs Abdomen: Normal bowel sounds, Soft, Other (TTP RUQ) Extremities: No edema Skin: No significant lesion Neuro: Normal speech Psych/Mental Status: Mental status NL Vitals VITALS Vital Signs Date Time Temp Pulse Resp B/P (MAP) Pulse Ox O2 Delivery O2 Flow Rate FiO2 06/28/20 17:12 97.9 72 18 127/61 (83) 93 Room Air 97.9 Labs Labs Laboratory Tests Test 06/28/20 08:06 06/28/20 12:42 White Blood Count 10.1 x10^3/uL (4.0-11.0) Red Blood Count 4.94 x10^6/uL (3.50-5.40) Hemoglobin 14.5 g/dL (12.0-15.5) Hematocrit 44.1 % (36.0-47.0) Mean Corpuscular Volume 89 fL (79-100) Mean Corpuscular Hemoglobin 29 pg (25-35) Mean Corpuscular Hemoglobin Concent 33 g/dL (31-37) Red Cell Distribution Width 13.5 % (11.5-14.5) Platelet Count 249 x10^3/uL (140-400) Neutrophils (%) (Auto) 83 % (31-73) Lymphocytes (%) (Auto) 9 % (24-48) Monocytes (%) (Auto) 6 % (0-9) Eosinophils (%) (Auto) 1 % (0-3) Basophils (%) (Auto) 1 % (0-3) Neutrophils # (Auto) 8.4 x10^3/uL (1.8-7.7) Lymphocytes # (Auto) 0.9 x10^3/uL (1.0-4.8) Monocytes # (Auto) 0.6 x10^3/uL (0.0-1.1) Eosinophils # (Auto) 0.0 x10^3/uL (0.0-0.7) Basophils # (Auto) 0.1 x10^3/uL (0.0-0.2) Sodium Level 135 mmol/L (136-145) Potassium Level 3.9 mmol/L (3.5-5.1) Chloride Level 100 mmol/L (98-107) Carbon Dioxide Level 26 mmol/L (21-32) Anion Gap 9 (6-14) Blood Urea Nitrogen 14 mg/dL (7-20) Creatinine 0.7 mg/dL (0.6-1.0) Estimated GFR (Cockcroft-Gault) 83.7 BUN/Creatinine Ratio 20 (6-20) Glucose Level 113 mg/dL (70-99) Calcium Level 8.9 mg/dL (8.5-10.1) Total Bilirubin 1.1 mg/dL (0.2-1.0) Aspartate Amino Transf (AST/SGOT) 52 U/L (15-37) Alanine Aminotransferase (ALT/SGPT) 67 U/L (14-59) Alkaline Phosphatase 71 U/L (46-116) Total Protein 7.7 g/dL (6.4-8.2) Albumin 3.5 g/dL (3.4-5.0) Albumin/Globulin Ratio 0.8 (1.0-1.7) Lipase 64 U/L (73-393) SARS-CoV-2 Antigen (Rapid) Negative (NEGATIVE) Laboratory Tests Test 06/28/20 08:06 06/28/20 12:42 White Blood Count 10.1 x10^3/uL (4.0-11.0) Red Blood Count 4.94 x10^6/uL (3.50-5.40) Hemoglobin 14.5 g/dL (12.0-15.5) Hematocrit 44.1 % (36.0-47.0) Mean Corpuscular Volume 89 fL (79-100) Mean Corpuscular Hemoglobin 29 pg (25-35) Mean Corpuscular Hemoglobin Concent 33 g/dL (31-37) Red Cell Distribution Width 13.5 % (11.5-14.5) Platelet Count 249 x10^3/uL (140-400) Neutrophils (%) (Auto) 83 % (31-73) Lymphocytes (%) (Auto) 9 % (24-48) Monocytes (%) (Auto) 6 % (0-9) Eosinophils (%) (Auto) 1 % (0-3) Basophils (%) (Auto) 1 % (0-3) Neutrophils # (Auto) 8.4 x10^3/uL (1.8-7.7) Lymphocytes # (Auto) 0.9 x10^3/uL (1.0-4.8) Monocytes # (Auto) 0.6 x10^3/uL (0.0-1.1) Eosinophils # (Auto) 0.0 x10^3/uL (0.0-0.7) Basophils # (Auto) 0.1 x10^3/uL (0.0-0.2) Sodium Level 135 mmol/L (136-145) Potassium Level 3.9 mmol/L (3.5-5.1) Chloride Level 100 mmol/L (98-107) Carbon Dioxide Level 26 mmol/L (21-32) Anion Gap 9 (6-14) Blood Urea Nitrogen 14 mg/dL (7-20) Creatinine 0.7 mg/dL (0.6-1.0) Estimated GFR (Cockcroft-Gault) 83.7 BUN/Creatinine Ratio 20 (6-20) Glucose Level 113 mg/dL (70-99) Calcium Level 8.9 mg/dL (8.5-10.1) Total Bilirubin 1.1 mg/dL (0.2-1.0) Aspartate Amino Transf (AST/SGOT) 52 U/L (15-37) Alanine Aminotransferase (ALT/SGPT) 67 U/L (14-59) Alkaline Phosphatase 71 U/L (46-116) Total Protein 7.7 g/dL (6.4-8.2) Albumin 3.5 g/dL (3.4-5.0) Albumin/Globulin Ratio 0.8 (1.0-1.7) Lipase 64 U/L (73-393) SARS-CoV-2 Antigen (Rapid) Negative (NEGATIVE) Assessment/Plan Assessment/Plan Cholecystitis plan L/S cholecystectomy tomorrow 06/29/20 YAHIR MELCHOR MD Jun 28, 2020 19:41
[2020-06-28 23:00] VITALS: BP 136/64
[2020-06-29] VITALS (14 sets, daily range): BP systolic 101–138; BP diastolic 50–76
[2020-06-29] MEDS: HYDROmorphone 2 MG/ML VIAL IV PRN ×2 (01:44→13:29)
[2020-06-29] MEDS ORDERED: PROPOFOL 10 MG/ML (20ML) VIAL. IV ONE ×2 (08:19→09:25)
[2020-06-29] MEDS ORDERED: LIDOCAINE 2% PF 5 ML VIAL. ONE ×2 (08:19→09:25)
[2020-06-29] MEDS ORDERED: ROCURONIUM 50 MG/5 ML VIAL. ONE (08:19)
[2020-06-29] MEDS ORDERED: fentaNYL PF VIAL 100 MCG/2 ML VIAL ONE ×2 (08:20→09:38)
[2020-06-29] MEDS ORDERED: IOHEXOL 300 MG/ML 50 ML VIAL. ONE (08:23)
[2020-06-29] MEDS ORDERED: SURGICEL HEMOSTAT 4X8 EACH. ONE (08:23)
[2020-06-29] MEDS ORDERED: BUPIVACAINE-EPI 0.25%-1:200000 MPF 30 ML VIAL. INJ ONE (08:30)
--- NOTE | 2020-06-29 08:53 | PDOC ---
PROGRESS NOTES Date of Service: DATE: 06/29/20 TIME: 08:52 Chief Complaint Chief Complaint IMPRESSION: 1. Cholelithiasis with mild gallbladder wall thickening and positive sonographic Gallardo sign, suspicious for acute cholecystitis. Correlate clinically. 2. Hepatic steatosis. VTE Prophylaxis Ordered VTE Prophylaxis Devices: Yes VTE Pharmacological Prophylaxi: No Assessment/Plan Assessment/Plan Acute cholecystitis Hyponatremia Hepatic steatosis. Plan: Consult general surgery for cholecystectomy. I imagine patient will have laparoscopic cholecystectomy today. If no complications she may be discharged home SOON IV pain medication IV normal saline FEN - n.p.o., after surgery advance diet as tolerated PPX - SCD, will change to heparin FULL CODE Dispo - inpatient for above d/w rn Operative Note Operative Note Operative Note Date: 06/29/2020 at 952 Preoperative diagnosis: Acute cholecystitis Postoperative diagnosis: Same Procedure: Laparoscopic cholecystectomy Surgeon: Ayo Specimen: Gallbladder Justifications for Admission Justifications for Admission Other Justification Acute cholecystitis History of Present Illness History of Present Illness Identification/Chief Complaint Chief Complaint Abdominal pain, back pain Source Source: Patient History of Present Illness History of Present Illness Patient is a 65-year-old female with past medical history rectal cancer, who presents to the ER with complaint of epigastric pain that started today. She was seen in the ER yesterday for left lower back pain that she thought was related to urinary tract infection. Urinalysis from yesterday was negative for any evidence of infection, and CT abdomen pelvis showed 1.5 cm left renal cyst, similar to prior studies, mildly distended gallbladder without visualized cholelithiasis. Patient was discharged from the ER and told to return if her symptoms worsened. This morning she began develop aching epigastric pain, 8/10, with associated decreased appetite. Patient notes an associated decreased appetite, and says she has not eaten today. Ultrasound right upper quadrant shows mild gallbladder wall thickening with cholelithiasis. General surgery was contacted by ER physician for acute cholecystitis, and I was asked to admit for further medical management. WBC 10.1, lipase 64 Past Medical History Past Medical History Rectal cancer, left breast cancer, mitral valve prolapse, HLD Cardiovascular: Other Pulmonary: No pertinent hx GI: Other Heme/Onc: Other Hepatobiliary: Other Psych: Depression Rheumatologic: No pertinent hx Infectious disease: No pertinent hx Endocrine: Osteoporosis, Other Past Surgical History Past Surgical History: Breast Biopsy, Hysterectomy Family History Family History: No Significant Social History Smoke: Quit ALCOHOL: none Drugs: None Vitals Vitals Vital Signs Date Time Temp Pulse Resp B/P (MAP) Pulse Ox O2 Delivery O2 Flow Rate FiO2 06/29/20 08:00 Room Air 06/29/20 07:00 98.9 81 19 138/70 (92) 97 98.9 Physical Exam General: Alert, Oriented X3, Cooperative, No acute distress Heart: Regular rate, Normal S1, Normal S2, No murmurs Lungs: Clear Abdomen: Normal bowel sounds, Soft, Other (TTP RUQ) Extremities: No clubbing, No cyanosis, No edema Skin: No significant lesion Labs LABS EXAMINATION: ABDOMEN LTD 06/28/2020 7:42 AM INDICATION: Right upper quadrant pain TECHNIQUE: Brown scale and color Doppler ultrasound images of the right upper quadrant were obtained. COMPARISON: None. FINDINGS: Exam is limited due to bowel gas. Liver: The liver is normal in size measuring 15.5 cm in length and diffusely increased in echogenicity. No focal liver lesion. Gallbladder: The gallbladder is distended. There are echogenic shadowing calculi layering in the gallbladder lumen. The gallbladder wall is mildly thickened measuring 4 mm. Sonographic Gallardo sign is positive. Bile ducts: The common bile duct is normal measuring 6 mm. No intrahepatic biliary duct dilatation. Right kidney: The right kidney measures 11.0 x 5.8 x 4.4 cm. Normal cortical thickness and echogenicity. No hydronephrosis. Other: Abdominal aorta, inferior vena cava, and pancreas are not well visualized. No ascites. IMPRESSION: 1. Cholelithiasis with mild gallbladder wall thickening and positive sonographic Gallardo sign, suspicious for acute cholecystitis. Correlate clinically. 2. Hepatic steatosis. Electronically signed by: Stephanie Muller MD (06/28/2020 8:15 AM) [id number] DICTATED and SIGNED BY: STEPHANIE MULLER MD DATE: 06/28/20814 Laboratory Tests Test 06/28/20 12:42 SARS-CoV-2 Antigen (Rapid) Negative (NEGATIVE) Assessment and Plan Assessmemt and Plan Problems Medical Problems: (1) Acute cholecystitis Status: Acute Comment Review of Relevant I have reviewed the following items kishore (where applicable) has been applied. Labs Laboratory Tests Test 06/28/20 08:06 06/28/20 12:42 White Blood Count 10.1 x10^3/uL (4.0-11.0) Red Blood Count 4.94 x10^6/uL (3.50-5.40) Hemoglobin 14.5 g/dL (12.0-15.5) Hematocrit 44.1 % (36.0-47.0) Mean Corpuscular Volume 89 fL (79-100) Mean Corpuscular Hemoglobin 29 pg (25-35) Mean Corpuscular Hemoglobin Concent 33 g/dL (31-37) Red Cell Distribution Width 13.5 % (11.5-14.5) Platelet Count 249 x10^3/uL (140-400) Neutrophils (%) (Auto) 83 % (31-73) Lymphocytes (%) (Auto) 9 % (24-48) Monocytes (%) (Auto) 6 % (0-9) Eosinophils (%) (Auto) 1 % (0-3) Basophils (%) (Auto) 1 % (0-3) Neutrophils # (Auto) 8.4 x10^3/uL (1.8-7.7) Lymphocytes # (Auto) 0.9 x10^3/uL (1.0-4.8) Monocytes # (Auto) 0.6 x10^3/uL (0.0-1.1) Eosinophils # (Auto) 0.0 x10^3/uL (0.0-0.7) Basophils # (Auto) 0.1 x10^3/uL (0.0-0.2) Sodium Level 135 mmol/L (136-145) Potassium Level 3.9 mmol/L (3.5-5.1) Chloride Level 100 mmol/L (98-107) Carbon Dioxide Level 26 mmol/L (21-32) Anion Gap 9 (6-14) Blood Urea Nitrogen 14 mg/dL (7-20) Creatinine 0.7 mg/dL (0.6-1.0) Estimated GFR (Cockcroft-Gault) 83.7 BUN/Creatinine Ratio 20 (6-20) Glucose Level 113 mg/dL (70-99) Calcium Level 8.9 mg/dL (8.5-10.1) Total Bilirubin 1.1 mg/dL (0.2-1.0) Aspartate Amino Transf (AST/SGOT) 52 U/L (15-37) Alanine Aminotransferase (ALT/SGPT) 67 U/L (14-59) Alkaline Phosphatase 71 U/L (46-116) Total Protein 7.7 g/dL (6.4-8.2) Albumin 3.5 g/dL (3.4-5.0) Albumin/Globulin Ratio 0.8 (1.0-1.7) Lipase 64 U/L (73-393) SARS-CoV-2 Antigen (Rapid) Negative (NEGATIVE) Laboratory Tests Test 06/28/20 12:42 SARS-CoV-2 Antigen (Rapid) Negative (NEGATIVE) Medications Current Medications Ketorolac Tromethamine (Toradol 30mg Vial) 30 mg 1X ONCE IVP Last administered on 06/28/20at 08:25; Start 06/28/20 at 08:15; Stop 06/28/20 at 08:18; Status DC Ondansetron HCl (Zofran) 4 mg PRN Q6HRS PRN IVP NAUSEA/VOMITING; Start 06/28/20 at 11:00 Prochlorperazine Edisylate (Compazine) 10 mg PRN Q6HRS PRN IVP NAUSEA/VOMITING; Start 06/28/20 at 11:00 Zolpidem Tartrate (Ambien) 5 mg PRN QHS PRN PO INSOMNIA, MAY REPEAT IN 1HR; Start 06/28/20 at 11:00 Morphine Sulfate (Morphine Sulfate) 1 mg PRN Q1HR PRN IV PAIN; Start 06/28/20 at 11:00 Morphine Sulfate (Morphine Sulfate) 2 mg PRN Q1HR PRN IV PAIN; Start 06/28/20 at 11:00 Hydromorphone HCl (Dilaudid) 0.2 mg PRN Q1HR PRN IV PAIN; Start 06/28/20 at 11:00 Hydromorphone HCl (Dilaudid) 0.4 mg PRN Q1HR PRN IV PAIN Last administered on 06/29/20at 01:44; Start 06/28/20 at 11:00 Ketorolac Tromethamine (Toradol 15mg Vial) 15 mg PRN Q6HRS PRN IV MOD./SEVERE PAIN (1st Choice) Last administered on 06/28/20at 13:03; Start 06/28/20 at 11:00; Stop 07/03/20 at 10:59 Sodium Chloride 1,000 ml @ 100 mls/hr 1X ONCE IV Last administered on 06/28/20at 12:31; Start 06/28/20 at 11:30; Stop 06/28/20 at 21:29; Status DC Ceftriaxone Sodium (Rocephin) 1 gm 1X ONCE IVP Last administered on 06/28/20at 13:49; Start 06/28/20 at 12:45; Stop 06/28/20 at 12:46; Status DC Lidocaine HCl (Lidocaine Pf 2% Vial) 5 ml STK-MED ONCE .ROUTE ; Start 06/29/20 at 08:19; Stop 06/29/20 at 08:19; Status DC Propofol (Diprivan) 200 mg STK-MED ONCE IV ; Start 06/29/20 at 08:19; Stop 06/29/20 at 08:19; Status DC Rocuronium [place] (Zemuron) 50 mg STK-MED ONCE .ROUTE ; Start 06/29/20 at 08:19; Stop 06/29/20 at 08:20; Status DC Fentanyl Citrate (Fentanyl 2ml Vial) 100 mcg STK-MED ONCE .ROUTE ; Start 06/29/20 at 08:20; Stop 06/29/20 at 08:20; Status DC Bupivacaine HCl/ Epinephrine Bitart (Sensorcaine-Epi 0.25%-1:841790 Mpf) 30 ml 1X ONCE INJ ; Start 06/29/20 at 08:30; Stop 06/29/20 at 08:31; Status DC Iohexol (Omnipaque 300 Mg/ml) 50 ml STK-MED ONCE .ROUTE ; Start 06/29/20 at 08:23; Stop 06/29/20 at 08:24; Status DC Cellulose (Surgicel Hemostat 4x8) 1 each STK-MED ONCE .ROUTE ; Start 06/29/20 at 08:23; Stop 06/29/20 at 08:24; Status DC Cefazolin Sodium/ Dextrose 50 ml @ 100 mls/hr 1X PREOP PRN IV PRIOR TO PROCEDURE; Start 06/30/20 at 06:00; Stop 06/30/20 at 18:00 Scopolamine (Transderm-Scop) 1 patch Q3DAYS TD ; Start 06/29/20 at 09:00; Status UNV Active Scripts Active Reported No Known Medications Prior To Admisstion (Info) Each 1 Each NONE Vitals/I & O Vital Sign - Last 24 Hours 06/28/20 06/28/20 06/28/20 06/28/20 09:07 09:39 10:07 10:37 Pulse 84 80 82 80 Resp 17 16 16 18 B/P (MAP) 138/70 (92) 129/65 (86) 137/73 (94) 125/69 (87) Pulse Ox 96 95 94 95 O2 Delivery Room Air Room Air Room Air Room Air 06/28/20 06/28/20 06/28/20 06/28/20 11:07 12:07 13:36 14:25 Pulse 82 80 Resp 18 16 B/P (MAP) 130/69 (89) 133/61 (85) Pulse Ox 95 95 O2 Delivery Room Air Room Air Room Air Room Air 06/28/20 06/28/20 06/28/20 06/28/20 14:31 16:22 17:12 19:00 Temp 98.1 97.9 98.0 98.1 97.9 98.0 Pulse 83 72 72 Resp 16 18 18 B/P (MAP) 140/67 (91) 127/61 (83) 129/63 (85) Pulse Ox 94 93 94 O2 Delivery Room Air Room Air Room Air Room Air 06/28/20 06/28/20 06/28/20 06/28/20 19:53 20:00 20:23 23:00 Temp 98.8 98.8 Pulse 81 Resp 20 20 18 B/P (MAP) 136/64 (88) Pulse Ox 93 94 94 O2 Delivery Room Air Room Air Room Air Room Air 06/29/20 06/29/20 06/29/20 06/29/20 01:44 02:14 03:00 07:00 Temp 98.4 98.9 98.4 98.9 Pulse 79 81 Resp 20 20 18 19 B/P (MAP) 131/76 (94) 138/70 (92) Pulse Ox 96 96 95 97 O2 Delivery Room Air Room Air Room Air Room Air 06/29/20 08:00 O2 Delivery Room Air Justicifation of Admission Dx: Justifications for Admission: Justification of Admission Dx: Yes Comments: acute cholecystitis YAHIR GAUTAM MD Jun 29, 2020 08:53
[2020-06-29] MEDS ORDERED: SCOPOLAMINE 1.5MG PATCH. TD SCH (09:00)
[2020-06-29] MEDS ORDERED: IV RINGERS,LACTATED 1000ML 1,000 ML IV SCH (09:15)
[2020-06-29] MEDS ORDERED: ONDANSETRON PF 4 MG/2 ML VIAL. ONE (09:24)
[2020-06-29] MEDS ORDERED: DEXAMETHASONE SOD PHOS 4 MG/ML VIAL ONE (09:24)
[2020-06-29] MEDS ORDERED: SEVOFLURANE 31 TO 60 MINUTES. IH ONE (09:24)
[2020-06-29] MEDS ORDERED: NEOSTIGMINE METHYLSULFATE 5 MG/5 ML SYRINGE. ONE (09:27)
[2020-06-29] MEDS ORDERED: GLYCOPYRROLATE 1 MG/5 ML VIAL. ONE (09:27)
--- NOTE | 2020-06-29 09:54 | PDOC4 ---
Operative Note Operative Note Date: 06/29/2020 at 952 Preoperative diagnosis: Acute cholecystitis Postoperative diagnosis: Same Procedure: Laparoscopic cholecystectomy Surgeon: Ayo Specimen: Gallbladder Dictation: Patient is a 65-year-old female was mated to the hospital right upper quadrant abdominal pain and ultrasound showing gallstones and thickened gallbladder wall consistent with a cholecystitis. Procedure of laparoscopic cholecystectomy was explained to the patient detail risk-benefit were also discussed including bleeding infection injury to intra-abdominal contents possible necessitating further or open operations alternatives to this procedure also discussed with the patient who seemed to understand and gave both verbal and written consent had procedure performed. Patient was taken to the operating room placed in the supine position general anesthesia was initiated once patient was sleeping intubated her abdomen was prepped and draped usual sterile fashion using ChloraPrep. Area in the umbilicus was injected with quarter percent Marcaine with epinephrine incision was made 11 blade scalpel and a varies needle was placed within the abdomen creating pneumoperitoneum once this was complete a low millimeter port was placed and a 5 mm camera was placed within the abdomen which was inspected no other red maladies were noted was noted the gallbladder was quite edematous consistent with acute cholecystitis. A 5 mm port was placed in the epigastrium a 5 mm port was placed in the right midabdomen and a 5 mm port was placed in the right lateral abdomen. The dome of the gallbladder is grasped retracted cephalad the infundibulum of the gallbladder is grasped retracted laterally exposing the triangle that here tissues the triangle were taken down with blunt dissection exposing the cystic duct and cystic artery both were doubly clipped and transected the gallbladder is taken off the liver with hook electrocautery placed in Endo Catch bag and removed the umbilicus the right upper quadrant is irrigated and suctioned dry hemostasis deemed be appropriate the pneumoperitoneum was reduced all ports were removed the fascial defect at the umbilicus was closed with a [id number] Vicryl suture and the skin was reapproximated all port sites for subcuticular Monocryl Mastisol Steri-Strips and island dressings were applied. Patient was awakened and extubated in the operating room taken to recovery in stable condition all sponge instrument needle counts listed as correct estimated blood loss 10 mL. YAHIR MELCHOR MD Jun 29, 2020 09:54
[2020-06-29] MEDS ORDERED: oxyCODONE/APAP 5/325 1 TAB TABLET PO PRN (10:00)
--- NOTE | 2020-06-29 10:02 | NUR ---
SW following. Discussed with RN, pt from home alone, room air, NPO, COVID-19 negative. Pt having a lap tom today. RN advised no SW needs at this time. SW will continue to follow.
--- NOTE | 2020-06-29 15:33 | NUR ---
Ambulated in hallway x1 without oxygen, sat level 86% on room air, encouraged use of incentive spirometry, SCD's bilaterally given broth per request
--- NOTE | 2020-06-29 16:38 | NUR ---
continuing to observe saturation level 91% on 2L/NC
[2020-06-29] MEDS: oxyCODONE/APAP 5/325 1 TAB TABLET PO PRN ×2 (16:40→21:59)
[2020-06-29] MEDS ORDERED: traZODone 50 MG TABLET. PO SCH (23:00)
[2020-06-30 03:00] VITALS: BP 120/61
[2020-06-30 05:15] LABS: BASO # 0.1 x10^3/uL (0.0-0.2); BASO % 1 % (0-3); EOS % 1 % (0-3); HEMATOCRIT 38.5 % (36.0-47.0); LYMPH # 1.3 x10^3/uL (1.0-4.8); LYMPH % 18 % (24-48); MEAN CORPUSCULAR HEMOGLOBIN 30 pg (25-35); MEAN CORPUSCULAR HGB CONC 34 g/dL (31-37); MEAN CORPUSCULAR VOLUME 89 fL (79-100); MONO # 0.5 x10^3/uL (0.0-1.1); MONO % 7 % (0-9); NEUT # 5.5 x10^3/uL (1.8-7.7); NEUT % 74 % (31-73); PLATELET COUNT 222 x10^3/uL (140-400); RED BLOOD COUNT 4.31 x10^6/uL (3.50-5.40); RED CELL DISTRIBUTION WIDTH 13.6 % (11.5-14.5); WHITE BLOOD COUNT 7.3 x10^3/uL (4.0-11.0)
[2020-06-30 05:50] LABS: ALBUMIN 2.8 g/dL (3.4-5.0); ALBUMIN/GLOBULIN RATIO 0.7 (1.0-1.7); CALCIUM 8.8 mg/dL (8.5-10.1); CREATININE 0.7 mg/dL (0.6-1.0); GFR 83.7; POTASSIUM 4.1 mmol/L (3.5-5.1); TOTAL BILIRUBIN 0.5 mg/dL (0.2-1.0); TOTAL PROTEIN 6.9 g/dL (6.4-8.2)
--- NOTE | 2020-06-30 06:14 | NUR ---
oxygen saturation level was 94% on room air at 0400. Will recheck this morning.
[2020-06-30 07:00] VITALS: BP 114/53
[2020-06-30] MEDS: oxyCODONE/APAP 5/325 1 TAB TABLET PO PRN (07:45)
--- NOTE | 2020-06-30 10:12 | PDOC ---
PROGRESS NOTES Date of Service: DATE: 06/30/20 TIME: 10:11 Chief Complaint Chief Complaint IMPRESSION: 1. Cholelithiasis with mild gallbladder wall thickening and positive sonographic Gallardo sign, suspicious for acute cholecystitis. Correlate clinically. 2. Hepatic steatosis. VTE Prophylaxis Ordered VTE Prophylaxis Devices: Yes VTE Pharmacological Prophylaxi: No discharge dx Assessment/Plan Acute cholecystitis Hyponatremia Hepatic steatosis. Plan: Consult general surgery for cholecystectomy. laparoscopic cholecystectomy If no complications she may be discharged home today IV pain medication IV normal saline FEN - n.p.o., after surgery advance diet as tolerated PPX - SCD, will change to heparin FULL CODE Dispo - inpatient for above d/w rn D/C PLANNING 36 MIN Operative Note Operative Note Operative Note Date: 06/29/2020 at 952 Preoperative diagnosis: Acute cholecystitis Postoperative diagnosis: Same Procedure: Laparoscopic cholecystectomy Surgeon: Ayo Specimen: Gallbladder Justifications for Admission Justifications for Admission Other Justification Acute cholecystitis History of Present Illness History of Present Illness Identification/Chief Complaint Chief Complaint Abdominal pain, back pain Source Source: Patient History of Present Illness History of Present Illness Patient is a 65-year-old female with past medical history rectal cancer, who presents to the ER with complaint of epigastric pain that started today. She was seen in the ER yesterday for left lower back pain that she thought was related to urinary tract infection. Urinalysis from yesterday was negative for any evidence of infection, and CT abdomen pelvis showed 1.5 cm left renal cyst, similar to prior studies, mildly distended gallbladder without visualized cholelithiasis. Patient was discharged from the ER and told to return if her symptoms worsened. This morning she began develop aching epigastric pain, 8/10, with associated decreased appetite. Patient notes an associated decreased appetite, and says she has not eaten today. Ultrasound right upper quadrant shows mild gallbladder wall thickening with cholelithiasis. General surgery was contacted by ER physician for acute cholecystitis, and I was asked to admit for further medical management. WBC 10.1, lipase 64 Past Medical History Past Medical History Rectal cancer, left breast cancer, mitral valve prolapse, HLD Cardiovascular: Other Pulmonary: No pertinent hx GI: Other Heme/Onc: Other Hepatobiliary: Other Psych: Depression Rheumatologic: No pertinent hx Infectious disease: No pertinent hx Endocrine: Osteoporosis, Other Past Surgical History Past Surgical History: Breast Biopsy, Hysterectomy Family History Family History: No Significant Social History Smoke: Quit ALCOHOL: none Drugs: None Vitals Vitals Vital Signs Date Time Temp Pulse Resp B/P (MAP) Pulse Ox O2 Delivery O2 Flow Rate FiO2 06/30/20 07:45 Room Air 06/30/20 07:00 98.1 66 18 114/53 (73) 95 98.1 06/29/20 14:01 2.0 Physical Exam General: Alert, Oriented X3, Cooperative, No acute distress Heart: Regular rate, Normal S1, Normal S2, No murmurs Lungs: Clear Abdomen: Normal bowel sounds, Soft, Other (TTP RUQ) Extremities: No clubbing, No cyanosis, No edema Skin: No breakdown, No significant lesion Labs LABS DPOA REVIEW 18 MIN to patient portal What Is a Power of Utility Accounts Director? A power of deputy county attorney (POA) is a legal document giving one person (the agent or [id number]) the power to act for another person (the principal). The agent can have broad legal authority or limited authority to make legal decisions about the principal's property, finances or medical care. The power of deputy county attorney is frequently used in the event of a principal's illness or disability, or when the principal can't be present to sign necessary legal documents for financial transactions. A power of deputy county attorney can end for a number of reasons, such as when the principal dies, the principal revokes it, a court invalidates it, the principal divorces their spouse, who happens to be the agent, or the agent can no longer carry out the outlined responsibilities. Conventional POAs lapse when the creator becomes incapacitated, but a durable POA remains in force to enable the agent to manage the creators affairs, and a springing POA comes into effect only if and when the creator of the POA becomes incapacitated. A medical or healthcare POA enables an agent to make medical decisions on behalf of an incapacitated person. Christensen Takeaways A power of deputy county attorney (POA) is a legal document giving one person, the agent or [id number] the power to act for another person, the principal. The agent can have broad legal authority or limited authority to make decisions about the principal's property, finances or medical care. The power of deputy county attorney is often used when a principal becomes ill or disabled, or when they can't be present to sign necessary legal documents for financial transactions. Understanding Power of Utility Accounts Director A power of deputy county attorney should be considered when planning for long-term care. There are different types of POAs that fall under either a general power of deputy county attorney or limited power of deputy county attorney. A general power of deputy county attorney acts on behalf of the principal in any and all matters, as allowed by the state. The agent under a general POA agreement may be authorized to take care of issues such as handling bank accounts, signing ch ecks, selling property and assets like stocks, f A limited power of deputy county attorney gives the agent the power to act on behalf of the principal in specific matters or events. For example, the limited POA may explicitly state that the agent is only allowed to manage the principal's penitentiary accounts. A limited POA may also be limited to a specific period of time (e.g., if the principal will be out of the country for, say, two years). Most mccann of deputy county attorney documents allow an agent to represent the principal in all property and financial matters as long as the principals mental state of mind is good. If a situation occurs where the principal becomes incapable of making decisions for him or herself, the POA agreement would automatically end. However, someone who wants the POA to remain in effect after the persons health deteriorates would need to sign a durable power of deputy county attorney (DPOA). What is an advance directive? An advance directive is a legal document that says how you want to be cared for if you are unable to make decisions. You can include what medical treatments you would want and who you would trust to make decisions for you. An advance directive can also include other legal documents. A living will is a list of treatment preferences. It can be used to indicate whether you would want cardiopulmonary resuscitation (CPR), tube feedings, a breathing machine, or certain medicines, like antibiotics. The durable power of deputy county attorney for health care document identifies the person you would want to make medical decisions for you. This person is also called a proxy. Your proxy should be familiar with your values and wishes. How do I get started? You can get advance directive documents for your state from your doctor's office or from [email or web address].org. Review the forms, and ask your doctor if you have any questions. Pick a person to be your proxy, and talk it over with that person. Laboratory Tests Test 06/30/20 04:35 White Blood Count 7.3 x10^3/uL (4.0-11.0) Red Blood Count 4.31 x10^6/uL (3.50-5.40) Hemoglobin 13.0 g/dL (12.0-15.5) Hematocrit 38.5 % (36.0-47.0) Mean Corpuscular Volume 89 fL (79-100) Mean Corpuscular Hemoglobin 30 pg (25-35) Mean Corpuscular Hemoglobin Concent 34 g/dL (31-37) Red Cell Distribution Width 13.6 % (11.5-14.5) Platelet Count 222 x10^3/uL (140-400) Neutrophils (%) (Auto) 74 % (31-73) Lymphocytes (%) (Auto) 18 % (24-48) Monocytes (%) (Auto) 7 % (0-9) Eosinophils (%) (Auto) 1 % (0-3) Basophils (%) (Auto) 1 % (0-3) Neutrophils # (Auto) 5.5 x10^3/uL (1.8-7.7) Lymphocytes # (Auto) 1.3 x10^3/uL (1.0-4.8) Monocytes # (Auto) 0.5 x10^3/uL (0.0-1.1) Eosinophils # (Auto) 0.0 x10^3/uL (0.0-0.7) Basophils # (Auto) 0.1 x10^3/uL (0.0-0.2) Sodium Level 136 mmol/L (136-145) Potassium Level 4.1 mmol/L (3.5-5.1) Chloride Level 102 mmol/L (98-107) Carbon Dioxide Level 27 mmol/L (21-32) Anion Gap 7 (6-14) Blood Urea Nitrogen 17 mg/dL (7-20) Creatinine 0.7 mg/dL (0.6-1.0) Estimated GFR (Cockcroft-Gault) 83.7 BUN/Creatinine Ratio 24 (6-20) Glucose Level 122 mg/dL (70-99) Calcium Level 8.8 mg/dL (8.5-10.1) Total Bilirubin 0.5 mg/dL (0.2-1.0) Aspartate Amino Transf (AST/SGOT) 42 U/L (15-37) Alanine Aminotransferase (ALT/SGPT) 74 U/L (14-59) Alkaline Phosphatase 73 U/L (46-116) Total Protein 6.9 g/dL (6.4-8.2) Albumin 2.8 g/dL (3.4-5.0) Albumin/Globulin Ratio 0.7 (1.0-1.7) Assessment and Plan Assessmemt and Plan Problems Medical Problems: (1) Acute cholecystitis Status: Acute Comment Review of Relevant I have reviewed the following items kishore (where applicable) has been applied. Labs Laboratory Tests Test 06/28/20 12:42 06/30/20 04:35 Coronavirus (PCR) Not detected (Not Detected) SARS-CoV-2 Antigen (Rapid) Negative (NEGATIVE) White Blood Count 7.3 x10^3/uL (4.0-11.0) Red Blood Count 4.31 x10^6/uL (3.50-5.40) Hemoglobin 13.0 g/dL (12.0-15.5) Hematocrit 38.5 % (36.0-47.0) Mean Corpuscular Volume 89 fL (79-100) Mean Corpuscular Hemoglobin 30 pg (25-35) Mean Corpuscular Hemoglobin Concent 34 g/dL (31-37) Red Cell Distribution Width 13.6 % (11.5-14.5) Platelet Count 222 x10^3/uL (140-400) Neutrophils (%) (Auto) 74 % (31-73) Lymphocytes (%) (Auto) 18 % (24-48) Monocytes (%) (Auto) 7 % (0-9) Eosinophils (%) (Auto) 1 % (0-3) Basophils (%) (Auto) 1 % (0-3) Neutrophils # (Auto) 5.5 x10^3/uL (1.8-7.7) Lymphocytes # (Auto) 1.3 x10^3/uL (1.0-4.8) Monocytes # (Auto) 0.5 x10^3/uL (0.0-1.1) Eosinophils # (Auto) 0.0 x10^3/uL (0.0-0.7) Basophils # (Auto) 0.1 x10^3/uL (0.0-0.2) Sodium Level 136 mmol/L (136-145) Potassium Level 4.1 mmol/L (3.5-5.1) Chloride Level 102 mmol/L (98-107) Carbon Dioxide Level 27 mmol/L (21-32) Anion Gap 7 (6-14) Blood Urea Nitrogen 17 mg/dL (7-20) Creatinine 0.7 mg/dL (0.6-1.0) Estimated GFR (Cockcroft-Gault) 83.7 BUN/Creatinine Ratio 24 (6-20) Glucose Level 122 mg/dL (70-99) Calcium Level 8.8 mg/dL (8.5-10.1) Total Bilirubin 0.5 mg/dL (0.2-1.0) Aspartate Amino Transf (AST/SGOT) 42 U/L (15-37) Alanine Aminotransferase (ALT/SGPT) 74 U/L (14-59) Alkaline Phosphatase 73 U/L (46-116) Total Protein 6.9 g/dL (6.4-8.2) Albumin 2.8 g/dL (3.4-5.0) Albumin/Globulin Ratio 0.7 (1.0-1.7) Laboratory Tests Test 06/30/20 04:35 White Blood Count 7.3 x10^3/uL (4.0-11.0) Red Blood Count 4.31 x10^6/uL (3.50-5.40) Hemoglobin 13.0 g/dL (12.0-15.5) Hematocrit 38.5 % (36.0-47.0) Mean Corpuscular Volume 89 fL (79-100) Mean Corpuscular Hemoglobin 30 pg (25-35) Mean Corpuscular Hemoglobin Concent 34 g/dL (31-37) Red Cell Distribution Width 13.6 % (11.5-14.5) Platelet Count 222 x10^3/uL (140-400) Neutrophils (%) (Auto) 74 % (31-73) Lymphocytes (%) (Auto) 18 % (24-48) Monocytes (%) (Auto) 7 % (0-9) Eosinophils (%) (Auto) 1 % (0-3) Basophils (%) (Auto) 1 % (0-3) Neutrophils # (Auto) 5.5 x10^3/uL (1.8-7.7) Lymphocytes # (Auto) 1.3 x10^3/uL (1.0-4.8) Monocytes # (Auto) 0.5 x10^3/uL (0.0-1.1) Eosinophils # (Auto) 0.0 x10^3/uL (0.0-0.7) Basophils # (Auto) 0.1 x10^3/uL (0.0-0.2) Sodium Level 136 mmol/L (136-145) Potassium Level 4.1 mmol/L (3.5-5.1) Chloride Level 102 mmol/L (98-107) Carbon Dioxide Level 27 mmol/L (21-32) Anion Gap 7 (6-14) Blood Urea Nitrogen 17 mg/dL (7-20) Creatinine 0.7 mg/dL (0.6-1.0) Estimated GFR (Cockcroft-Gault) 83.7 BUN/Creatinine Ratio 24 (6-20) Glucose Level 122 mg/dL (70-99) Calcium Level 8.8 mg/dL (8.5-10.1) Total Bilirubin 0.5 mg/dL (0.2-1.0) Aspartate Amino Transf (AST/SGOT) 42 U/L (15-37) Alanine Aminotransferase (ALT/SGPT) 74 U/L (14-59) Alkaline Phosphatase 73 U/L (46-116) Total Protein 6.9 g/dL (6.4-8.2) Albumin 2.8 g/dL (3.4-5.0) Albumin/Globulin Ratio 0.7 (1.0-1.7) Medications Current Medications Ketorolac Tromethamine (Toradol 30mg Vial) 30 mg 1X ONCE IVP Last administered on 06/28/20at 08:25; Start 06/28/20 at 08:15; Stop 06/28/20 at 08:18; Status DC Ondansetron HCl (Zofran) 4 mg PRN Q6HRS PRN IVP NAUSEA/VOMITING; Start 06/28/20 at 11:00 Prochlorperazine Edisylate (Compazine) 10 mg PRN Q6HRS PRN IVP NAUSEA/VOMITING; Start 06/28/20 at 11:00 Zolpidem Tartrate (Ambien) 5 mg PRN QHS PRN PO INSOMNIA, MAY REPEAT IN 1HR; Start 06/28/20 at 11:00 Morphine Sulfate (Morphine Sulfate) 1 mg PRN Q1HR PRN IV PAIN; Start 06/28/20 at 11:00 Morphine Sulfate (Morphine Sulfate) 2 mg PRN Q1HR PRN IV PAIN; Start 06/28/20 at 11:00 Hydromorphone HCl (Dilaudid) 0.2 mg PRN Q1HR PRN IV PAIN; Start 06/28/20 at 11:00 Hydromorphone HCl (Dilaudid) 0.4 mg PRN Q1HR PRN IV PAIN Last administered on 06/29/20at 13:29; Start 06/28/20 at 11:00 Ketorolac Tromethamine (Toradol 15mg Vial) 15 mg PRN Q6HRS PRN IV MOD./SEVERE PAIN (1st Choice) Last administered on 06/28/20at 13:03; Start 06/28/20 at 11:00; Stop 07/03/20 at 10:59 Sodium Chloride 1,000 ml @ 100 mls/hr 1X ONCE IV Last administered on 06/28/20at 12:31; Start 06/28/20 at 11:30; Stop 06/28/20 at 21:29; Status DC Ceftriaxone Sodium (Rocephin) 1 gm 1X ONCE IVP Last administered on 06/28/20at 13:49; Start 06/28/20 at 12:45; Stop 06/28/20 at 12:46; Status DC Lidocaine HCl (Lidocaine Pf 2% Vial) 5 ml STK-MED ONCE .ROUTE ; Start 06/29/20 at 08:19; Stop 06/29/20 at 08:19; Status DC Propofol (Diprivan) 200 mg STK-MED ONCE IV ; Start 06/29/20 at 08:19; Stop 06/29/20 at 08:19; Status DC Rocuronium [place] (Zemuron) 50 mg STK-MED ONCE .ROUTE ; Start 06/29/20 at 08:19; Stop 06/29/20 at 08:20; Status DC Fentanyl Citrate (Fentanyl 2ml Vial) 100 mcg STK-MED ONCE .ROUTE ; Start 06/29/20 at 08:20; Stop 06/29/20 at 08:20; Status DC Bupivacaine HCl/ Epinephrine Bitart (Sensorcaine-Epi 0.25%-1:[id number] Mpf) 30 ml 1X ONCE INJ Last administered on 06/29/20at 12:02; Start 06/29/20 at 08:30; Stop 06/29/20 at 08:31; Status DC Iohexol (Omnipaque 300 Mg/ml) 50 ml STK-MED ONCE .ROUTE ; Start 06/29/20 at 08:23; Stop 06/29/20 at 08:24; Status DC Cellulose (Surgicel Hemostat 4x8) 1 each STK-MED ONCE .ROUTE ; Start 06/29/20 at 08:23; Stop 06/29/20 at 08:24; Status DC Cefazolin Sodium/ Dextrose 50 ml @ 100 mls/hr 1X PREOP PRN IV PRIOR TO PROCEDURE Last administered on 06/29/20at 09:11; Start 06/30/20 at 06:00; Stop 06/30/20 at 18:00 Scopolamine (Transderm-Scop) 1 patch Q3DAYS TD ; Start 06/29/20 at 09:00 Ringer's Solution 1,000 ml @ 75 mls/hr [id number] IV Last administered on 06/29/20at 09:15; Start 06/29/20 at 09:15; Stop 06/29/20 at 14:20; Status DC Dexamethasone Sodium Phosphate (Decadron) 4 mg STK-MED ONCE .ROUTE ; Start 06/29/20 at 09:24; Stop 06/29/20 at 09:24; Status DC Sevoflurane (Ultane) 30 ml STK-MED ONCE IH ; Start 06/29/20 at 09:24; Stop 06/29/20 at 09:25; Status DC Ondansetron HCl (Zofran) 4 mg STK-MED ONCE .ROUTE ; Start 06/29/20 at 09:24; Stop 06/29/20 at 09:25; Status DC Propofol (Diprivan) 200 mg STK-MED ONCE IV ; Start 06/29/20 at 09:25; Stop 06/29/20 at 09:25; Status DC Lidocaine HCl (Lidocaine Pf 2% Vial) 5 ml STK-MED ONCE .ROUTE ; Start 06/29/20 at 09:25; Stop 06/29/20 at 09:25; Status DC Neostigmine [place] (Neostigmine Methylsulfate) 5 mg STK-MED ONCE .ROUTE ; Start 06/29/20 at 09:27; Stop 06/29/20 at 09:27; Status DC Glycopyrrolate (Robinul) 1 mg STK-MED ONCE .ROUTE ; Start 06/29/20 at 09:27; Stop 06/29/20 at 09:27; Status DC Fentanyl Citrate (Fentanyl 2ml Vial) 100 mcg STK-MED ONCE .ROUTE ; Start 06/29/20 at 09:38; Stop 06/29/20 at 09:38; Status DC Oxycodone/ Acetaminophen (Percocet 5/325) 1 tab PRN Q4HRS PRN PO MODERATE PAIN Last administered on 06/30/20at 07:45; Start 06/29/20 at 10:00 Oxycodone/ Acetaminophen (Percocet 5/325) 2 tab PRN Q4HRS PRN PO SEVERE PAIN; Start 06/29/20 at 10:00 Trazodone HCl (Desyrel) 50 mg QHS PO Last administered on 06/29/20at 22:42; Start 06/29/20 at 23:00 Active Scripts Active Reported No Known Medications Prior To Admisstion (Info) Each 1 Each NONE Vitals/I & O Vital Sign - Last 24 Hours 06/29/20 06/29/20 06/29/20 06/29/20 10:21 10:36 10:51 11:00 Temp 98.9 98.9 98.9 98.9 98.9 98.9 Pulse 76 76 76 75 Resp 15 15 15 19 B/P (MAP) 118/52 120/59 121/55 101/59 (73) Pulse Ox 97 98 97 90 O2 Delivery Room Air Room Air Room Air Nasal Cannula Nasal Cannula Nasal Cannula O2 Flow Rate 2 2 2 2.0 06/29/20 06/29/20 06/29/20 06/29/20 11:00 11:15 11:30 11:45 Temp 98.9 98.9 Pulse 88 89 76 76 Resp 18 19 19 19 B/P (MAP) 123/61 (81) 112/69 (83) 123/58 (79) 121/63 (82) Pulse Ox 92 93 90 90 O2 Delivery Nasal Cannula Nasal Cannula Nasal Cannula Nasal Cannula O2 Flow Rate 2.0 2.0 2.0 2.0 06/29/20 06/29/20 06/29/20 06/29/20 11:55 12:00 12:30 13:00 Temp 98.1 98.1 Pulse 87 76 71 88 Resp 19 19 B/P (MAP) 123/61 (81) 132/63 (86) 128/59 (82) 124/73 (90) Pulse Ox 90 93 93 92 O2 Delivery Nasal Cannula Nasal Cannula Nasal Cannula Nasal Cannula O2 Flow Rate 2.0 2.0 2.0 06/29/20 06/29/20 06/29/20 06/29/20 14:01 15:00 19:00 20:00 Temp 97.4 97.6 97.4 97.6 Pulse 70 75 70 Resp 19 19 18 B/P (MAP) 108/50 (69) 124/70 (88) 118/62 (80) Pulse Ox 92 95 94 O2 Delivery Nasal Cannula Room Air Room Air Room Air O2 Flow Rate 2.0 06/29/20 06/29/20 06/29/20 06/30/20 21:59 23:00 23:00 03:00 Temp 97.8 98.2 97.8 98.2 Pulse 71 70 Resp 18 18 B/P (MAP) 118/56 (76) 120/61 (80) Pulse Ox 94 94 O2 Delivery Room Air Room Air Room Air Room Air 06/30/20 06/30/20 07:00 07:45 Temp 98.1 98.1 Pulse 66 Resp 18 B/P (MAP) 114/53 (73) Pulse Ox 95 O2 Delivery Room Air Room Air Intake and Output 06/29/20 06/29/20 06/30/20 15:00 23:00 07:00 Intake Total 570 ml Output Total 10 ml Balance 560 ml Justicifation of Admission Dx: Justifications for Admission: Justification of Admission Dx: Yes YAHIR GAUTAM MD Jun 30, 2020 10:11
--- NOTE | 2020-06-30 10:12 | NUR ---
SW following. Discussed with RN, pt from home alone, room air, tolerating full liquid diet. Pt reporting she wants to go home today, she is getting around fine and managing pain well. RN advised no SW needs. SW will continue to follow, should any discharge planning needs arise.
[2020-06-30 11:00] VITALS: BP 118/54
--- NOTE | 2020-06-30 11:13 | PDOC3 ---
Discharge Summary Date of Admission: Jun 28, 2020 Date of Discharge: Jun 30, 2020 Follow-Up: 3-5 days Admitting Diagnosis comment: IMPRESSION: 1. Cholelithiasis with mild gallbladder wall thickening and positive sonographic Gallardo sign, suspicious for acute cholecystitis. Correlate clinically. 2. Hepatic steatosis. VTE Prophylaxis Ordered VTE Prophylaxis Devices: Yes VTE Pharmacological Prophylaxi: No discharge dx Assessment/Plan Acute cholecystitis Hyponatremia Hepatic steatosis. Plan: Consult general surgery for cholecystectomy. laparoscopic cholecystectomy If no complications she may be discharged home today IV pain medication IV normal saline FEN - n.p.o., after surgery advance diet as tolerated PPX - SCD, will change to heparin FULL CODE Dispo - inpatient for above d/w rn D/C PLANNING 36 MIN Operative Note Operative Note Operative Note Date: 06/29/2020 at 952 Preoperative diagnosis: Acute cholecystitis Postoperative diagnosis: Same Procedure: Laparoscopic cholecystectomy Surgeon: Ayo Specimen: Gallbladder Justifications for Admission Justifications for Admission Other Justification Acute cholecystitis History of Present Illness History of Present Illness Identification/Chief Complaint Chief Complaint Abdominal pain, back pain Source Source: Patient History of Present Illness History of Present Illness Patient is a 65-year-old female with past medical history rectal cancer, who presents to the ER with complaint of epigastric pain that started today. She was seen in the ER yesterday for left lower back pain that she thought was related to urinary tract infection. Urinalysis from yesterday was negative for any evidence of infection, and CT abdomen pelvis showed 1.5 cm left renal cyst, similar to prior studies, mildly distended gallbladder without visualized cholelithiasis. Patient was discharged from the ER and told to return if her symptoms worsened. This morning she began develop aching epigastric pain, 8/10, with associated decreased appetite. Patient notes an associated decreased appetite, and says she has not eaten today. Ultrasound right upper quadrant shows mild gallbladder wall thickening with cholelithiasis. General surgery was contacted by ER physician for acute cholecystitis, and I was asked to admit for further medical management. WBC 10.1, lipase 64 Past Medical History Past Medical History Rectal cancer, left breast cancer, mitral valve prolapse, HLD Cardiovascular: Other Pulmonary: No pertinent hx GI: Other Heme/Onc: Other Hepatobiliary: Other Psych: Depression Rheumatologic: No pertinent hx Infectious disease: No pertinent hx Endocrine: Osteoporosis, Other Past Surgical History Past Surgical History: Breast Biopsy, Hysterectomy Family History Family History: No Significant Social History Smoke: Quit ALCOHOL: none Drugs: None Vitals Vitals Vital Signs Date Time Temp Pulse Resp B/P (MAP) Pulse Ox O2 Delivery O2 Flow Rate FiO2 06/30/20 07:45 Room Air 06/30/20 07:00 98.1 66 18 114/53 (73) 95 98.1 06/29/20 14:01 2.0 Physical Exam General: Alert, Oriented X3, Cooperative, No acute distress Heart: Regular rate, Normal S1, Normal S2, No murmurs Lungs: Clear Abdomen: Normal bowel sounds, Soft, Other (TTP RUQ) Extremities: No clubbing, No cyanosis, No edema Skin: No breakdown, No significant lesion FINAL DIAGNOSIS Problems Medical Problems: (1) Acute cholecystitis Status: Acute Brief Hospital Course Ms. Mancilla is a 65 old [sex] who presented with [acute cholecystitis ] CONDITION AT DISCHARGE: Improved Discharge Medications Current Medications Ketorolac Tromethamine (Toradol 30mg Vial) 30 mg 1X ONCE IVP Last administered on 06/28/20at 08:25; Start 06/28/20 at 08:15; Stop 06/28/20 at 08:18; Status DC Ondansetron HCl (Zofran) 4 mg PRN Q6HRS PRN IVP NAUSEA/VOMITING; Start 06/28/20 at 11:00 Prochlorperazine Edisylate (Compazine) 10 mg PRN Q6HRS PRN IVP NAUSEA/VOMITING; Start 06/28/20 at 11:00 Zolpidem Tartrate (Ambien) 5 mg PRN QHS PRN PO INSOMNIA, MAY REPEAT IN 1HR; Start 06/28/20 at 11:00 Morphine Sulfate (Morphine Sulfate) 1 mg PRN Q1HR PRN IV PAIN; Start 06/28/20 at 11:00 Morphine Sulfate (Morphine Sulfate) 2 mg PRN Q1HR PRN IV PAIN; Start 06/28/20 at 11:00 Hydromorphone HCl (Dilaudid) 0.2 mg PRN Q1HR PRN IV PAIN; Start 06/28/20 at 11:00 Hydromorphone HCl (Dilaudid) 0.4 mg PRN Q1HR PRN IV PAIN Last administered on 06/29/20at 13:29; Start 06/28/20 at 11:00 Ketorolac Tromethamine (Toradol 15mg Vial) 15 mg PRN Q6HRS PRN IV MOD./SEVERE PAIN (1st Choice) Last administered on 06/28/20at 13:03; Start 06/28/20 at 11:00; Stop 07/03/20 at 10:59 Sodium Chloride 1,000 ml @ 100 mls/hr 1X ONCE IV Last administered on 06/28/20at 12:31; Start 06/28/20 at 11:30; Stop 06/28/20 at 21:29; Status DC Ceftriaxone Sodium (Rocephin) 1 gm 1X ONCE IVP Last administered on 06/28/20at 13:49; Start 06/28/20 at 12:45; Stop 06/28/20 at 12:46; Status DC Lidocaine HCl (Lidocaine Pf 2% Vial) 5 ml STK-MED ONCE .ROUTE ; Start 06/29/20 at 08:19; Stop 06/29/20 at 08:19; Status DC Propofol (Diprivan) 200 mg STK-MED ONCE IV ; Start 06/29/20 at 08:19; Stop 06/29/20 at 08:19; Status DC Rocuronium Holcomb (Zemuron) 50 mg STK-MED ONCE .ROUTE ; Start 06/29/20 at 08:19; Stop 06/29/20 at 08:20; Status DC Fentanyl Citrate (Fentanyl 2ml Vial) 100 mcg STK-MED ONCE .ROUTE ; Start 06/29/20 at 08:20; Stop 06/29/20 at 08:20; Status DC Bupivacaine HCl/ Epinephrine Bitart (Sensorcaine-Epi 0.25%-1:760654 Mpf) 30 ml 1X ONCE INJ Last administered on 06/29/20at 12:02; Start 06/29/20 at 08:30; Stop 06/29/20 at 08:31; Status DC Iohexol (Omnipaque 300 Mg/ml) 50 ml STK-MED ONCE .ROUTE ; Start 06/29/20 at 08:23; Stop 06/29/20 at 08:24; Status DC Cellulose (Surgicel Hemostat 4x8) 1 each STK-MED ONCE .ROUTE ; Start 06/29/20 at 08:23; Stop 06/29/20 at 08:24; Status DC Cefazolin Sodium/ Dextrose 50 ml @ 100 mls/hr 1X PREOP PRN IV PRIOR TO PROCEDURE Last administered on 06/29/20at 09:11; Start 06/30/20 at 06:00; Stop 06/30/20 at 18:00 Scopolamine (Transderm-Scop) 1 patch Q3DAYS TD ; Start 06/29/20 at 09:00 Ringer's Solution 1,000 ml @ 75 mls/hr [id number] IV Last administered on 06/29/20at 09:15; Start 06/29/20 at 09:15; Stop 06/29/20 at 14:20; Status DC Dexamethasone Sodium Phosphate (Decadron) 4 mg STK-MED ONCE .ROUTE ; Start 06/29/20 at 09:24; Stop 06/29/20 at 09:24; Status DC Sevoflurane (Ultane) 30 ml STK-MED ONCE IH ; Start 06/29/20 at 09:24; Stop 06/29/20 at 09:25; Status DC Ondansetron HCl (Zofran) 4 mg STK-MED ONCE .ROUTE ; Start 06/29/20 at 09:24; Stop 06/29/20 at 09:25; Status DC Propofol (Diprivan) 200 mg STK-MED ONCE IV ; Start 06/29/20 at 09:25; Stop 06/29/20 at 09:25; Status DC Lidocaine HCl (Lidocaine Pf 2% Vial) 5 ml STK-MED ONCE .ROUTE ; Start 06/29/20 at 09:25; Stop 06/29/20 at 09:25; Status DC Neostigmine Holcomb (Neostigmine Methylsulfate) 5 mg STK-MED ONCE .ROUTE ; Start 06/29/20 at 09:27; Stop 06/29/20 at 09:27; Status DC Glycopyrrolate (Robinul) 1 mg STK-MED ONCE .ROUTE ; Start 06/29/20 at 09:27; Stop 06/29/20 at 09:27; Status DC Fentanyl Citrate (Fentanyl 2ml Vial) 100 mcg STK-MED ONCE .ROUTE ; Start 06/29/20 at 09:38; Stop 06/29/20 at 09:38; Status DC Oxycodone/ Acetaminophen (Percocet 5/325) 1 tab PRN Q4HRS PRN PO MODERATE PAIN Last administered on 06/30/20at 07:45; Start 06/29/20 at 10:00 Oxycodone/ Acetaminophen (Percocet 5/325) 2 tab PRN Q4HRS PRN PO SEVERE PAIN; Start 06/29/20 at 10:00 Trazodone HCl (Desyrel) 50 mg QHS PO Last administered on 06/29/20at 22:42; Start 06/29/20 at 23:00 Active Scripts Active Reported No Known Medications Prior To Admisstion (Info) Each 1 Each NONE Vital Signs Vital Signs Date Time Temp Pulse Resp B/P (MAP) Pulse Ox O2 Delivery O2 Flow Rate FiO2 06/30/20 08:45 Room Air 06/30/20 07:00 98.1 66 18 114/53 (73) 95 98.1 06/29/20 14:01 2.0 Labs Laboratory Tests Test 06/28/20 12:42 06/30/20 04:35 Coronavirus (PCR) Not detected (Not Detected) SARS-CoV-2 Antigen (Rapid) Negative (NEGATIVE) White Blood Count 7.3 x10^3/uL (4.0-11.0) Red Blood Count 4.31 x10^6/uL (3.50-5.40) Hemoglobin 13.0 g/dL (12.0-15.5) Hematocrit 38.5 % (36.0-47.0) Mean Corpuscular Volume 89 fL (79-100) Mean Corpuscular Hemoglobin 30 pg (25-35) Mean Corpuscular Hemoglobin Concent 34 g/dL (31-37) Red Cell Distribution Width 13.6 % (11.5-14.5) Platelet Count 222 x10^3/uL (140-400) Neutrophils (%) (Auto) 74 % (31-73) Lymphocytes (%) (Auto) 18 % (24-48) Monocytes (%) (Auto) 7 % (0-9) Eosinophils (%) (Auto) 1 % (0-3) Basophils (%) (Auto) 1 % (0-3) Neutrophils # (Auto) 5.5 x10^3/uL (1.8-7.7) Lymphocytes # (Auto) 1.3 x10^3/uL (1.0-4.8) Monocytes # (Auto) 0.5 x10^3/uL (0.0-1.1) Eosinophils # (Auto) 0.0 x10^3/uL (0.0-0.7) Basophils # (Auto) 0.1 x10^3/uL (0.0-0.2) Sodium Level 136 mmol/L (136-145) Potassium Level 4.1 mmol/L (3.5-5.1) Chloride Level 102 mmol/L (98-107) Carbon Dioxide Level 27 mmol/L (21-32) Anion Gap 7 (6-14) Blood Urea Nitrogen 17 mg/dL (7-20) Creatinine 0.7 mg/dL (0.6-1.0) Estimated GFR (Cockcroft-Gault) 83.7 BUN/Creatinine Ratio 24 (6-20) Glucose Level 122 mg/dL (70-99) Calcium Level 8.8 mg/dL (8.5-10.1) Total Bilirubin 0.5 mg/dL (0.2-1.0) Aspartate Amino Transf (AST/SGOT) 42 U/L (15-37) Alanine Aminotransferase (ALT/SGPT) 74 U/L (14-59) Alkaline Phosphatase 73 U/L (46-116) Total Protein 6.9 g/dL (6.4-8.2) Albumin 2.8 g/dL (3.4-5.0) Albumin/Globulin Ratio 0.7 (1.0-1.7) Laboratory Tests Test 06/30/20 04:35 White Blood Count 7.3 x10^3/uL (4.0-11.0) Red Blood Count 4.31 x10^6/uL (3.50-5.40) Hemoglobin 13.0 g/dL (12.0-15.5) Hematocrit 38.5 % (36.0-47.0) Mean Corpuscular Volume 89 fL (79-100) Mean Corpuscular Hemoglobin 30 pg (25-35) Mean Corpuscular Hemoglobin Concent 34 g/dL (31-37) Red Cell Distribution Width 13.6 % (11.5-14.5) Platelet Count 222 x10^3/uL (140-400) Neutrophils (%) (Auto) 74 % (31-73) Lymphocytes (%) (Auto) 18 % (24-48) Monocytes (%) (Auto) 7 % (0-9) Eosinophils (%) (Auto) 1 % (0-3) Basophils (%) (Auto) 1 % (0-3) Neutrophils # (Auto) 5.5 x10^3/uL (1.8-7.7) Lymphocytes # (Auto) 1.3 x10^3/uL (1.0-4.8) Monocytes # (Auto) 0.5 x10^3/uL (0.0-1.1) Eosinophils # (Auto) 0.0 x10^3/uL (0.0-0.7) Basophils # (Auto) 0.1 x10^3/uL (0.0-0.2) Sodium Level 136 mmol/L (136-145) Potassium Level 4.1 mmol/L (3.5-5.1) Chloride Level 102 mmol/L (98-107) Carbon Dioxide Level 27 mmol/L (21-32) Anion Gap 7 (6-14) Blood Urea Nitrogen 17 mg/dL (7-20) Creatinine 0.7 mg/dL (0.6-1.0) Estimated GFR (Cockcroft-Gault) 83.7 BUN/Creatinine Ratio 24 (6-20) Glucose Level 122 mg/dL (70-99) Calcium Level 8.8 mg/dL (8.5-10.1) Total Bilirubin 0.5 mg/dL (0.2-1.0) Aspartate Amino Transf (AST/SGOT) 42 U/L (15-37) Alanine Aminotransferase (ALT/SGPT) 74 U/L (14-59) Alkaline Phosphatase 73 U/L (46-116) Total Protein 6.9 g/dL (6.4-8.2) Albumin 2.8 g/dL (3.4-5.0) Albumin/Globulin Ratio 0.7 (1.0-1.7) Allergies Allergies Coded Allergies Type Severity Reaction Last Updated Verified codeine Allergy Intermediate Tolerates Morphine 09/04/16 Yes pseudoephedrine HCl Allergy Intermediate 09/04/16 Yes Disposition/Orders: D/C to Home Justicifation of Admission Dx: Justifications for Admission: Justification of Admission Dx: Yes YAHIR GAUTAM MD Jun 30, 2020 11:13
[2020-06-30] MEDS ORDERED: OXYC1TAB15 PO (11:14)
--- NOTE | 2020-06-30 11:16 | DISCH ---
DISCHARGE INSTRUCTIONS Condition on Discharge Condition on Discharge: Stable Activity After Discharge Activity Instructions for Disc: Activity as tolerated Driving Instructions after Dis: Do not drive Diet after Discharge Diet after Discharge: Regular Diet Texture: Regular Liquid Texture: Thin Liquid Swallowing Supervision: None needed Contacting the DR. after DC Call your doctor for: If your condition worsens Treatment/Equipment after DC Adaptive Equipment Issued: None YAHIR GAUTAM MD Jun 30, 2020 11:16
--- NOTE | 2020-06-30 11:42 | PDOC ---
SURGICAL PROGRESS NOTE DATE: 06/30/20 TIME: 11:40 Subjective doing well tolerating diet pain managed Vital Signs Vital Signs Date Time Temp Pulse Resp B/P (MAP) Pulse Ox O2 Delivery O2 Flow Rate FiO2 06/30/20 11:00 97.9 76 18 118/54 (75) 97 Room Air 97.9 06/29/20 14:01 2.0 I&O Intake and Output 06/30/20 07:00 Intake Total 570 ml Output Total 10 ml Balance 560 ml Intake Oral 120 ml IV Total 450 ml Output Estimated Blood Loss 10 ml # Voids 4 General: Alert, Oriented X3, Cooperative Abdomen: Soft, Other (lap dressings dry) Labs Laboratory Tests Test 06/28/20 12:42 06/30/20 04:35 Coronavirus (PCR) Not detected (Not Detected) SARS-CoV-2 Antigen (Rapid) Negative (NEGATIVE) White Blood Count 7.3 x10^3/uL (4.0-11.0) Red Blood Count 4.31 x10^6/uL (3.50-5.40) Hemoglobin 13.0 g/dL (12.0-15.5) Hematocrit 38.5 % (36.0-47.0) Mean Corpuscular Volume 89 fL (79-100) Mean Corpuscular Hemoglobin 30 pg (25-35) Mean Corpuscular Hemoglobin Concent 34 g/dL (31-37) Red Cell Distribution Width 13.6 % (11.5-14.5) Platelet Count 222 x10^3/uL (140-400) Neutrophils (%) (Auto) 74 % (31-73) Lymphocytes (%) (Auto) 18 % (24-48) Monocytes (%) (Auto) 7 % (0-9) Eosinophils (%) (Auto) 1 % (0-3) Basophils (%) (Auto) 1 % (0-3) Neutrophils # (Auto) 5.5 x10^3/uL (1.8-7.7) Lymphocytes # (Auto) 1.3 x10^3/uL (1.0-4.8) Monocytes # (Auto) 0.5 x10^3/uL (0.0-1.1) Eosinophils # (Auto) 0.0 x10^3/uL (0.0-0.7) Basophils # (Auto) 0.1 x10^3/uL (0.0-0.2) Sodium Level 136 mmol/L (136-145) Potassium Level 4.1 mmol/L (3.5-5.1) Chloride Level 102 mmol/L (98-107) Carbon Dioxide Level 27 mmol/L (21-32) Anion Gap 7 (6-14) Blood Urea Nitrogen 17 mg/dL (7-20) Creatinine 0.7 mg/dL (0.6-1.0) Estimated GFR (Cockcroft-Gault) 83.7 BUN/Creatinine Ratio 24 (6-20) Glucose Level 122 mg/dL (70-99) Calcium Level 8.8 mg/dL (8.5-10.1) Total Bilirubin 0.5 mg/dL (0.2-1.0) Aspartate Amino Transf (AST/SGOT) 42 U/L (15-37) Alanine Aminotransferase (ALT/SGPT) 74 U/L (14-59) Alkaline Phosphatase 73 U/L (46-116) Total Protein 6.9 g/dL (6.4-8.2) Albumin 2.8 g/dL (3.4-5.0) Albumin/Globulin Ratio 0.7 (1.0-1.7) Laboratory Tests Test 06/30/20 04:35 White Blood Count 7.3 x10^3/uL (4.0-11.0) Red Blood Count 4.31 x10^6/uL (3.50-5.40) Hemoglobin 13.0 g/dL (12.0-15.5) Hematocrit 38.5 % (36.0-47.0) Mean Corpuscular Volume 89 fL (79-100) Mean Corpuscular Hemoglobin 30 pg (25-35) Mean Corpuscular Hemoglobin Concent 34 g/dL (31-37) Red Cell Distribution Width 13.6 % (11.5-14.5) Platelet Count 222 x10^3/uL (140-400) Neutrophils (%) (Auto) 74 % (31-73) Lymphocytes (%) (Auto) 18 % (24-48) Monocytes (%) (Auto) 7 % (0-9) Eosinophils (%) (Auto) 1 % (0-3) Basophils (%) (Auto) 1 % (0-3) Neutrophils # (Auto) 5.5 x10^3/uL (1.8-7.7) Lymphocytes # (Auto) 1.3 x10^3/uL (1.0-4.8) Monocytes # (Auto) 0.5 x10^3/uL (0.0-1.1) Eosinophils # (Auto) 0.0 x10^3/uL (0.0-0.7) Basophils # (Auto) 0.1 x10^3/uL (0.0-0.2) Sodium Level 136 mmol/L (136-145) Potassium Level 4.1 mmol/L (3.5-5.1) Chloride Level 102 mmol/L (98-107) Carbon Dioxide Level 27 mmol/L (21-32) Anion Gap 7 (6-14) Blood Urea Nitrogen 17 mg/dL (7-20) Creatinine 0.7 mg/dL (0.6-1.0) Estimated GFR (Cockcroft-Gault) 83.7 BUN/Creatinine Ratio 24 (6-20) Glucose Level 122 mg/dL (70-99) Calcium Level 8.8 mg/dL (8.5-10.1) Total Bilirubin 0.5 mg/dL (0.2-1.0) Aspartate Amino Transf (AST/SGOT) 42 U/L (15-37) Alanine Aminotransferase (ALT/SGPT) 74 U/L (14-59) Alkaline Phosphatase 73 U/L (46-116) Total Protein 6.9 g/dL (6.4-8.2) Albumin 2.8 g/dL (3.4-5.0) Albumin/Globulin Ratio 0.7 (1.0-1.7) Problem List Problems Medical Problems: (1) Acute cholecystitis Status: Acute Assessment/Plan s/p tom ok to nm home FU 2 weeks Justicifation of Admission Dx: Justifications for Admission: Justification of Admission Dx: Yes ROMINA DIAZ [employer] Jun 30, 2020 11:42
--- NOTE | 2020-07-03 12:19 | NUR ---
NaCl started at 1231 on 06/28 stopped at 2230 on 06/28
== END 2020-06-30 12:04 | disposition home or self-care (01) ==
LOC: ER 06:44 → INTOOBSV 10:04 → ED HOLD 10:04 → 4 NORTH 16:44
PROVIDERS: ADMIT Family Medicine; ATTEND Family Medicine
DX: K80.00 Calculus of gallbladder with acute cholecystitis without obstruction (principal); Z20.828 Contact with and (suspected) exposure to other viral communicable diseases; E87.1 Hypo-osmolality and hyponatremia; K76.0 Fatty (change of) liver, not elsewhere classified; I34.1 Nonrheumatic mitral (valve) prolapse; E78.5 Hyperlipidemia, unspecified; M81.0 Age-related osteoporosis without current pathological fracture; Z85.048 Personal history of other malignant neoplasm of rectum, rectosigmoid junction, and anus; Z85.3 Personal history of malignant neoplasm of breast; Z90.710 Acquired absence of both cervix and uterus; Z87.891 Personal history of nicotine dependence
CPT/HCPCS: 36415; 47562; 76705; 80053; 83690; 85025; 87426; 96361; 96374; 96375; 96376; A7015; G0378; G0379; J0690; J0696; J1100; J1170; J1885; J2405; J2704; J2710; J3010; J3490; J7030; J7120; U0003; J2270; Q9967

== ENCOUNTER → 2020-08-16 | Outpatient (CLI) | payer MEDICARE ==
[~2020-08-16] MED LIST changes: +OXYC1TAB15 PO
[2020-08-16 15:39] LABS: BASO % 1 % (0-3); EOS # 0.1 x10^3/uL (0.0-0.7); EOS % 2 % (0-3); HEMATOCRIT 41.1 % (36.0-47.0); HEMOGLOBIN 13.6 g/dL (12.0-15.5); LYMPH # 1.8 x10^3/uL (1.0-4.8); LYMPH % 34 % (24-48); MEAN CORPUSCULAR HEMOGLOBIN 29 pg (25-35); MEAN CORPUSCULAR HGB CONC 33 g/dL (31-37); MEAN CORPUSCULAR VOLUME 89 fL (79-100); MONO # 0.3 x10^3/uL (0.0-1.1); MONO % 6 % (0-9); NEUT # 3.1 x10^3/uL (1.8-7.7); NEUT % 57 % (31-73); PLATELET COUNT 249 x10^3/uL (140-400); RED BLOOD COUNT 4.64 x10^6/uL (3.50-5.40); RED CELL DISTRIBUTION WIDTH 13.9 % (11.5-14.5); WHITE BLOOD COUNT 5.4 x10^3/uL (4.0-11.0)
[2020-08-16 15:55] LABS: ALBUMIN 3.5 g/dL (3.4-5.0); CALCIUM 8.9 mg/dL (8.5-10.1); CREATININE 0.7 mg/dL (0.6-1.0); GFR 83.7; POTASSIUM 3.6 mmol/L (3.5-5.1); TOTAL BILIRUBIN 0.2 mg/dL (0.2-1.0); TOTAL PROTEIN 7.1 g/dL (6.4-8.2)
== END ==
LOC: LAB 15:09
PROVIDERS: ATTEND Internal Medicine Hematology & Oncology
DX: C50.212 Malignant neoplasm of upper-inner quadrant of left female breast (principal); Z17.0 Estrogen receptor positive status [ER+]
CPT/HCPCS: 36415; 80053; 85025; 86300

== ENCOUNTER → 2021-04-16 | Outpatient (CLI) | payer MEDICARE ==
[~2021-04-16] MED LIST changes: -CALC600T6 PO; +CALC600T60 PO
[2021-04-16 10:09] LABS: BASO % 1 % (0-3); EOS # 0.1 x10^3/uL (0.0-0.7); EOS % 2 % (0-3); HEMATOCRIT 41.5 % (36.0-47.0); HEMOGLOBIN 13.8 g/dL (12.0-15.5); LYMPH # 1.8 x10^3/uL (1.0-4.8); LYMPH % 31 % (24-48); MEAN CORPUSCULAR HEMOGLOBIN 30 pg (25-35); MEAN CORPUSCULAR HGB CONC 33 g/dL (31-37); MEAN CORPUSCULAR VOLUME 90 fL (79-100); MONO # 0.4 x10^3/uL (0.0-1.1); MONO % 7 % (0-9); NEUT # 3.3 x10^3/uL (1.8-7.7); NEUT % 59 % (31-73); PLATELET COUNT 236 x10^3/uL (140-400); RED BLOOD COUNT 4.62 x10^6/uL (3.50-5.40); RED CELL DISTRIBUTION WIDTH 13.8 % (11.5-14.5); WHITE BLOOD COUNT 5.7 x10^3/uL (4.0-11.0)
[2021-04-16 10:24] LABS: ALBUMIN 3.6 g/dL (3.4-5.0); ALBUMIN/GLOBULIN RATIO 0.9 (1.0-1.7); CALCIUM 8.8 mg/dL (8.5-10.1); CREATININE 0.7 mg/dL (0.6-1.0); GFR 83.5; POTASSIUM 4.1 mmol/L (3.5-5.1); TOTAL BILIRUBIN 0.5 mg/dL (0.2-1.0); TOTAL PROTEIN 7.5 g/dL (6.4-8.2)
== END ==
LOC: LAB 08:43
PROVIDERS: ATTEND Internal Medicine Hematology & Oncology
DX: C50.212 Malignant neoplasm of upper-inner quadrant of left female breast (principal); Z17.0 Estrogen receptor positive status [ER+]
CPT/HCPCS: 36415; 80053; 85025; 86300

== ENCOUNTER 2021-05-08 19:24 | Emergency (ER) | payer MEDICARE ==
[~2021-05-08] VITALS: Ht 162.6 cm; Wt 75.0 kg
[2021-05-08] MEDS ORDERED: IV NORMAL SALINE 1000ML BAG 1,000 ML IV ONE (20:30)
[2021-05-08] MEDS ORDERED: KETOROLAC 30 MG/ML VIAL. IVP ONE (20:30)
[2021-05-08 20:39] LABS: BASO % 1 % (0-3); EOS # 0.1 x10^3/uL (0.0-0.7); EOS % 1 % (0-3); HEMOGLOBIN 14.3 g/dL (12.0-15.5); LYMPH # 1.6 x10^3/uL (1.0-4.8); LYMPH % 19 % (24-48); MEAN CORPUSCULAR HEMOGLOBIN 30 pg (25-35); MEAN CORPUSCULAR HGB CONC 34 g/dL (31-37); MEAN CORPUSCULAR VOLUME 88 fL (79-100); MONO # 0.5 x10^3/uL (0.0-1.1); MONO % 6 % (0-9); NEUT % 74 % (31-73); PLATELET COUNT 263 x10^3/uL (140-400); RED BLOOD COUNT 4.78 x10^6/uL (3.50-5.40); RED CELL DISTRIBUTION WIDTH 13.5 % (11.5-14.5); WHITE BLOOD COUNT 8.2 x10^3/uL (4.0-11.0)
[2021-05-08 20:49] LABS: CREATININE 0.7 mg/dL (0.6-1.0); GFR 83.5; POTASSIUM 3.7 mmol/L (3.5-5.1)
[2021-05-08 20:55] LABS: ALBUMIN 3.6 g/dL (3.4-5.0); TOTAL BILIRUBIN 0.6 mg/dL (0.2-1.0); TOTAL PROTEIN 7.2 g/dL (6.4-8.2)
[2021-05-08 21:38] LABS: BILIRUBIN,URINE SMALL (NEG); CLARITY,URINE CLOUDY; COLOR,URINE AMBER; NITRITE,URINE NEGATIVE (NEG); PROTEIN,URINE 30 mg/dL (NEG-TRACE)
[2021-05-08 21:45] LABS: BACTERIA,URINE FEW /HPF (0-FEW)
[2021-05-08 21:46] LABS: RBC,URINE 0 /HPF (0-2); WBC,URINE 20-40 /HPF (0-4)
[2021-05-08] MEDS ORDERED: CEPH500T PO (22:17)
--- NOTE | 2021-05-08 22:17 | PHYS DOC ---
Past Medical History Past Medical History: Cancer, High Cholesterol, Other Additional Past Medical Histor: rectal cancer, mitral valve prolapse, BREAST CANCER Past Surgical History: Hysterectomy, Other Additional Past Surgical Histo: left lumpectomy Smoking Status: Never Smoker Alcohol Use: None Drug Use: None General Adult EDM: Chief Complaint: ABDOMINAL PAIN HPI: HPI: Patient is a 66-year-old female who presents to the emergency department complaining of abdominal pains since this past Friday morning. Patient reports she was lifting heavy boxes and taking them from her basement to her upstairs most of all day on , reports she feels like she strained her abdominal muscles in some way. Patient reports when she woke up Friday she had muscle pain in her abdominal wall, states this continued on through Friday and into today. Patient states the pain is not getting any better however not getting any worse, reports at onset it was 3-4 out of 10 and has been a constant 6-7 out of 10 since Friday. Patient denies taking any [id number] or prescription pain medications for this pain. Patient denies trying any nonpharmacological pain relief methods. Patient states she takes no prescription medications at home, denies allergies to medications. Patient denies constipation problems, denies increased urinary frequency, urinary pressure, dysuria, blood in her stool or her urine. Patient denies chest pain, shortness of breath, rashes to her skin, fever or chills, visual disturbances, headaches, or dizziness. Patient denies any other physical complaints or physical concerns. Review of Systems: Review of Systems: 14 body systems of review of systems have been reviewed. See HPI for pertinent positives and negative responses, otherwise all other systems are negative, nonpertinent or noncontributory. Constitutional: Negative except as outlined in HPI above. Skin: Negative except as outlined in HPI above. Eyes: Negative except as outlined in HPI above. HENT: Negative except as outlined in HPI above. Respiratory: Negative except as outlined in HPI above. Cardiovascular: Negative except as outlined in HPI above. GI: Negative except as outlined in HPI above. : Negative except as outlined in HPI above. Musculoskeletal: Negative except as outlined in HPI above. Integument: Negative except as outlined in HPI above. Neurologic: Negative except as outlined in HPI above. Endocrine: Negative except as outlined in HPI above. Lymphatic: Negative except as outlined in HPI above. Psychiatric: Negative except as outlined in HPI above. Heart Score: C/O Chest Pain: No Risk Factors: Risk Factors: DM, Current or recent (<one month) smoker, HTN, HLP, family history of CAD, obesity. Risk Scores: Score 0 - 3: 2.5% MACE over next 6 weeks - Discharge Home Score 4 - 6: 20.3% MACE over next 6 weeks - Admit for Clinical Observation Score 7 - 10: 72.7% MACE over next 6 weeks - Early Invasive Strategies Current Medications: Current Medications Medications (Trade) Dose Ordered Sig/Tangela Start Time Stop Time Status Last Admin Dose Admin Ketorolac Tromethamine (Toradol 30mg Vial) 30 mg 1X ONCE 05/08/21 20:30 05/08/21 20:31 DC 05/08/21 20:38 30 MG Sodium Chloride 1,000 ml @ 1,000 mls/hr 1X ONCE 05/08/21 20:30 05/08/21 21:29 DC 05/08/21 20:39 1,000 MLS/HR Allergies: Allergies: Allergies Coded Allergies Type Severity Reaction Last Updated Verified codeine Allergy Intermediate Tolerates Morphine 09/04/16 Yes pseudoephedrine HCl Allergy Intermediate 09/04/16 Yes Physical Exam: PE: Constitutional: Well developed, well nourished, no acute distress, non-toxic appearance. 66-year-old female in no apparent distress. HENT: Normocephalic, atraumatic. Eyes: Conjunctiva normal, no discharge. Neck: Normal range of motion. Cardiovascular: Distal cap refill less than 2 seconds, no cyanosis appreciated. Lungs & Thorax: Patient is in no respiratory distress, no adventitious lung soun ds appreciated. Abdomen: Bowel sounds normal, soft, no masses, no pulsatile masses. No bruising or skin discoloration of the abdomen. Generalized pain to palpation all 4 quadrants, nonspecific or rebound tenderness, McBurney's point tenderness, psoas sign, Gallardo sign. Skin: Warm, dry, no erythema, no rash. Back: No tenderness, no CVA tenderness. Extremities: No tenderness, no cyanosis, no clubbing, ROM intact, no edema. Neurologic: Alert and oriented X 3, normal motor function, normal sensory function, no focal deficits noted. Psychologic: Affect normal, judgement normal, mood normal. Current Patient Data: Labs: Laboratory Tests Test 05/08/21 20:33 05/08/21 21:22 White Blood Count 8.2 x10^3/uL Red Blood Count 4.78 x10^6/uL Hemoglobin 14.3 g/dL Hematocrit 42.0 % Mean Corpuscular Volume 88 fL Mean Corpuscular Hemoglobin 30 pg Mean Corpuscular Hemoglobin Concent 34 g/dL Red Cell Distribution Width 13.5 % Platelet Count 263 x10^3/uL Neutrophils (%) (Auto) 74 % Lymphocytes (%) (Auto) 19 % Monocytes (%) (Auto) 6 % Eosinophils (%) (Auto) 1 % Basophils (%) (Auto) 1 % Neutrophils # (Auto) 6.0 x10^3/uL Lymphocytes # (Auto) 1.6 x10^3/uL Monocytes # (Auto) 0.5 x10^3/uL Eosinophils # (Auto) 0.1 x10^3/uL Basophils # (Auto) 0.0 x10^3/uL Sodium Level 139 mmol/L Potassium Level 3.7 mmol/L Chloride Level 102 mmol/L Carbon Dioxide Level 28 mmol/L Anion Gap 9 Blood Urea Nitrogen 18 mg/dL Creatinine 0.7 mg/dL Estimated GFR (Cockcroft-Gault) 83.5 BUN/Creatinine Ratio 26 Glucose Level 107 mg/dL Calcium Level 9.0 mg/dL Total Bilirubin 0.6 mg/dL Aspartate Amino Transf (AST/SGOT) 22 U/L Alanine Aminotransferase (ALT/SGPT) 47 U/L Alkaline Phosphatase 69 U/L Total Protein 7.2 g/dL Albumin 3.6 g/dL Albumin/Globulin Ratio 1.0 Lipase 68 U/L Urine Collection Type Unknown Urine Color Daya Urine Clarity Cloudy Urine pH 6.0 Urine Specific Mellott 1.025 Urine Protein 30 mg/dL Urine Glucose (UA) Negative mg/dL Urine Ketones (Stick) >=80 mg/dL Urine Blood Negative Urine Nitrite Negative Urine Bilirubin Small Urine Urobilinogen Dipstick 1.0 mg/dL Urine Leukocyte Esterase Moderate Urine RBC 0 /HPF Urine WBC 20-40 /HPF Urine Squamous Epithelial Cells Few /LPF Urine Bacteria Few /HPF Urine Mucus Marked /LPF Current Medications Medications (Trade) Dose Ordered Sig/Tangela Route PRN Reason Start Time Stop Time Status Last Admin Dose Admin Ketorolac Tromethamine (Toradol 30mg Vial) 30 mg 1X ONCE IVP 05/08/21 20:30 05/08/21 20:31 DC 05/08/21 20:38 30 MG Sodium Chloride 1,000 ml @ 1,000 mls/hr 1X ONCE IV 05/08/21 20:30 05/08/21 21:29 DC 05/08/21 20:39 1,000 MLS/HR Laboratory Tests Test 05/08/21 20:33 White Blood Count 8.2 x10^3/uL (4.0-11.0) Red Blood Count 4.78 x10^6/uL (3.50-5.40) Hemoglobin 14.3 g/dL (12.0-15.5) Hematocrit 42.0 % (36.0-47.0) Mean Corpuscular Volume 88 fL (79-100) Mean Corpuscular Hemoglobin 30 pg (25-35) Mean Corpuscular Hemoglobin Concent 34 g/dL (31-37) Red Cell Distribution Width 13.5 % (11.5-14.5) Platelet Count 263 x10^3/uL (140-400) Neutrophils (%) (Auto) 74 % (31-73) H Lymphocytes (%) (Auto) 19 % (24-48) L Monocytes (%) (Auto) 6 % (0-9) Eosinophils (%) (Auto) 1 % (0-3) Basophils (%) (Auto) 1 % (0-3) Neutrophils # (Auto) 6.0 x10^3/uL (1.8-7.7) Lymphocytes # (Auto) 1.6 x10^3/uL (1.0-4.8) Monocytes # (Auto) 0.5 x10^3/uL (0.0-1.1) Eosinophils # (Auto) 0.1 x10^3/uL (0.0-0.7) Basophils # (Auto) 0.0 x10^3/uL (0.0-0.2) Sodium Level 139 mmol/L (136-145) Potassium Level 3.7 mmol/L (3.5-5.1) Chloride Level 102 mmol/L (98-107) Carbon Dioxide Level 28 mmol/L (21-32) Anion Gap 9 (6-14) Blood Urea Nitrogen 18 mg/dL (7-20) Creatinine 0.7 mg/dL (0.6-1.0) Estimated GFR (Cockcroft-Gault) 83.5 BUN/Creatinine Ratio 26 (6-20) H Glucose Level 107 mg/dL (70-99) H Calcium Level 9.0 mg/dL (8.5-10.1) Total Bilirubin 0.6 mg/dL (0.2-1.0) Aspartate Amino Transferase (AST) 22 U/L (15-37) Alanine Aminotransferase (ALT) 47 U/L (14-59) Alkaline Phosphatase 69 U/L (46-116) Total Protein 7.2 g/dL (6.4-8.2) Albumin 3.6 g/dL (3.4-5.0) Albumin/Globulin Ratio 1.0 (1.0-1.7) Lipase 68 U/L (73-393) L Laboratory Tests 05/08/21 20:33 Laboratory Tests 05/08/21 20:33 Vital Signs: Vital Signs Date Time Temp Pulse Resp B/P (MAP) Pulse Ox O2 Delivery O2 Flow Rate FiO2 05/08/21 20:40 83 20 138/63 (88) 94 Room Air 05/08/21 19:47 98.4 98.4 EKG: EKG: [] Radiology/Procedures: Radiology/Procedures: [] Course & Med Decision Making: Course & Med Decision Making Pertinent Labs and Imaging studies reviewed. (See chart for details) 66-year-old female, vital signs reviewed, presents emergency department concerning abdominal pains after lifting heavy boxes this past . Physical examination consistent with musculoskeletal pain. However will order urinalysis assay, CBC, CMP. Will give 1 L normal saline, IV Toradol for pain. Patient's CBC and CMP within normal limits. The patient's urine abnormal, elevated leukocyte Estrace, 20-40 white blood cells, no hematuria, no nitrates, treat prophylactically for urinary tract infection. Upon reevaluation of the patient, patient is now pain-free. Patient states the pain medication given resolved her pain. Discussed lab findings and abnormal urinalysis findings with patient, discussed with patient prophylactic treatment for UTI with Keflex, prescription for 600 mg ibuprofen to take for ongoing musculoskeletal abdominal wall pain. Patient gave verbal understanding of this, is amenable to ED discharge planning. Discussed with the patient all findings and diagnostic yue ting as well as the need to follow-up with their primary care provider for further evaluation and treatment or return to the ED if any new or worsening symptoms. Strict return precautions were also discussed at length, the patient voiced understanding and agreement with the discharge planning. The patient was nontoxic in appearance, in no apparent distress, and hemodynamically stable at the time of disposition. Dragon Disclaimer: Dragon Disclaimer: This electronic medical record was generated, in whole or in part, using a voice recognition dictation system. Departure Departure Impression: Primary Impression: Nonspecific abdominal pain Additional Impression: Urinary tract infection Qualified Codes: N39.0 - Urinary tract infection, site not specified Disposition: HOME / SELF CARE / HOMELESS Condition: GOOD Referrals: SAVITA GONZALEZ D.O. (PCP) Patient Instructions: Abdominal Pain (Nonspecific), Urinary Tract Infection Additional Instructions: You were seen today in the emergency department for pain in your abdominal wall area. You had stated you had been lifting heavy items prior to the onset of this pain. An extensive abdominal work-up was done today in the emergency department, you did not show any signs of infection, your lab work was within normal limits, however your urine was abnormal and suspicious for urinary tract infection as we discussed, I am starting you on a prescription of Keflex that you will take twice a day for the next 5 days. Your pain was considerably relieved with the nonsteroidal anti-inflammatory given to your IV while in the emergency department. This leads me to believe your pain may be more musculoskeletal in nature. Please continue to use your ibuprofen at home for re turning abdominal pains. As we discussed, follow-up with your primary care physician for ongoing evaluation. Please return to the ER immediately for sudden increase in abdominal pain or other concerns. Thank you for visiting our Emergency Department. It was a pleasure taking care of you today in the emergency department and we appreciate you trusting us with your care. If any additional problems come up don't hesitate to return to visit us. Please follow up with your primary care provider so they can plan additional care if needed and know about the problem that you had. If symptoms worsen come back to the Emergency Department. Any concerning symptoms that start such as chest pain, shortness of air, weakness or numbness on one side of the body, running high fevers or any other concerning symptoms return to the ER. EMERGENCY DEPARTMENT GENERAL DISCHARGE INSTRUCTIONS Thank you for coming to [facility] Emergency Department (ED) today and trusting us with you care. We trust that you had a positive experience in our Emergency Department. If you wish to speak to the department management, you may call the Director at [phone]. YOUR FOLLOW UP INSTRUCTIONS ARE FOLLOWS: 1. Do you have a private Doctor? If you do not have a private doctor, please ask for a resource list of physicians or clinics that may be able to assist you with follow up care. 2. The Emergency Physicain has interpreted your x-rays. The X-Ray specialist will also review them. If there is a change in the findings, you will be notified in 48 hours when at all possible. 3. A lab test or culture has been done, your results will be reviewed and you will be notified if you need a change in treatment. ADDITIONAL INSTRUCTIONS AND INFORMATION: 1. Your care today has been supervised by a physician who is specially trained in emergency care. Many problems require more than one evaluation for a complete diagnosis and treatment. We recommend that you schedule your follow up appointment as recommended to ensure complete treatment of you illness or injury. If you are unable to obtain follow up care and continue to have a problem, or if your condition worsens, we recommend that you return to the ED. 2. We are not able to safely determine your condition over the phone nor are we able to give sound medical advice over the phone. For these safety reasons, if you call for medical advice we will ask you to come to the ED for further evaluation. 3. If you have any questions regarding these discharge instructions please call the ED at [phone]. SAFETY INFORMATION: In the interest of safety, wellness, and injury prevention; we encourage you to wear your sealbelt, if you smoke; quite smoking, and we encourage family to use a protective helmet for bicycling and other sporting events that present an increased risk for head injury. IF YOUR SYMPTOMS WORSEN OR NEW SYMPTOMS DEVELOP, OR YOU HAVE CONCERNS ABOUT YOUR CONDITION; OR IF YOUR CONDITION WORSENS WHILE YOU ARE WAITING FOR YOUR FOLLOW UP APPOINTMENT; EITHER CONTACT YOUR PRIMARY CARE DOCTOR, THE PHYSICIAN WHOSE NAME AND NUMBER YOU WERE GIVEN, OR RETURN TO THE ED IMMEDIATELY. Scripts Cephalexin (CEPHALEXIN) 500 Mg Tablet 1 TAB PO BID for urinary tract infection for 5 Days, #10 TAB 0 Refills Prov: JULIAN DIAZ APRN 05/08/21 JULIAN DIAZ APRN May 08, 2021 22:17
[2021-05-08 22:30] VITALS: BP 130/61
[2021-05-08] MEDS ORDERED: CEPHALEXIN 250 MG CAPSULE. PO ONE (23:00)
== END 2021-05-08 22:36 | disposition home or self-care (01) ==
LOC: ER 19:24
DX: N39.0 Urinary tract infection, site not specified (principal); E78.00 Pure hypercholesterolemia, unspecified; Z90.710 Acquired absence of both cervix and uterus; Z88.5 Allergy status to narcotic agent; Z88.8 Allergy status to other drugs, medicaments and biological substances
CPT/HCPCS: 36415; 80053; 81001; 83690; 85025; 87086; 96361; 96374; 99283; J1885; J7030

== ENCOUNTER → 2021-10-22 | Outpatient (CLI) | payer MEDICARE ==
[~2021-10-22] MED LIST changes: +CEPH500T PO
[2021-10-22 09:56] LABS: BASO % 1 % (0-3); EOS # 0.1 x10^3/uL (0.0-0.7); EOS % 1 % (0-3); HEMATOCRIT 42.4 % (36.0-47.0); HEMOGLOBIN 13.8 g/dL (12.0-15.5); LYMPH # 1.5 x10^3/uL (1.0-4.8); LYMPH % 29 % (24-48); MEAN CORPUSCULAR HEMOGLOBIN 29 pg (25-35); MEAN CORPUSCULAR HGB CONC 33 g/dL (31-37); MEAN CORPUSCULAR VOLUME 88 fL (79-100); MONO # 0.3 x10^3/uL (0.0-1.1); MONO % 6 % (0-9); NEUT # 3.2 x10^3/uL (1.8-7.7); NEUT % 62 % (31-73); PLATELET COUNT 232 x10^3/uL (140-400); RED CELL DISTRIBUTION WIDTH 14.2 % (11.5-14.5); WHITE BLOOD COUNT 5.2 x10^3/uL (4.0-11.0)
[2021-10-22 10:04] LABS: ALBUMIN 3.7 g/dL (3.4-5.0); ALBUMIN/GLOBULIN RATIO 0.9 (1.0-1.7); CALCIUM 8.4 mg/dL (8.5-10.1); CREATININE 0.7 mg/dL (0.6-1.0); GFR 83.5; POTASSIUM 4.3 mmol/L (3.5-5.1); TOTAL BILIRUBIN 0.6 mg/dL (0.2-1.0); TOTAL PROTEIN 7.8 g/dL (6.4-8.2)
== END ==
LOC: LAB 09:22
PROVIDERS: ATTEND Internal Medicine Hematology & Oncology
DX: C50.212 Malignant neoplasm of upper-inner quadrant of left female breast (principal); Z17.0 Estrogen receptor positive status [ER+]
CPT/HCPCS: 36415; 80053; 85025; 86300